=== PATIENT | female | born 1950 | race Caucasian/White ===

== ENCOUNTER 2021-10-23 12:37 | Emergency (ER) | payer MEDICARE, BC, SELFPAY ==
[2021-10-23 12:49] VITALS: BP 135/72; RESP 18; TEMP 36; O2SAT 98; BMI 27.6
--- NOTE | 2021-10-23 13:07 | ED.GENADULT ---
HPI - General Adult General Time Seen by Provider: 13:07 Date Seen: 10/23/21 Chief complaint: Cough Stated complaint: Covid+, struggling to breathe Time Seen by Provider: 10/23/21 12:56 Source: patient and RN notes reviewed Mode of arrival: ambulatory Limitations: no limitations History of Present Illness HPI narrative: Patient is a 71-year-old female coming in to the ER with concern of COVID symptoms. She started having COVID symptoms Tuesday night, her is also home sick with COVID. She has some mild intermittent asthma per her report. This morning she had some phlegm and could not cough it up and had a spell where she had difficulty breathing. She is coughing some with this but not excessively. She has had some low-grade fevers. She had a headache the 1st 2 days but that has gone away. Body aches were more severe at the beginning but less so today. Tuesday morning when she woke up she had an episode of vertigo where she was spinning for a couple of hours. She has had vertigo before. She reports this spell of vertigo the day after she had her COVID vaccine and actually passed out with that. She has had a sore throat. She did use her 's inhaler this morning and it did help. It was albuterol. He has asthma as well. She has been vaccinated for COVID and did get 1 booster. She has not noticed any GI symptomatology as of yet with this current COVID illness. She is interested in treatment for COVID. As for medications, patient is on Arimidex, levothyroxine, uses p.r.n. metoprolol for AFib episodes, tacrolimus topical and betamethasone topical. Onset (ago): day(s) Related Data Home Medications Medication Instructions Recorded Confirmed anastrozole 1 mg tablet mg 10/23/21 clobetasol 0.05 % topical ointment TOPICAL 10/23/21 levothyroxine 112 mcg tablet mcg 10/23/21 metoprolol tartrate 25 mg tablet mg 10/23/21 tacrolimus 0.1 % topical ointment TOPICAL 10/23/21 Previous Rx's Medication Instructions Recorded nirmatrelvir 150 mg-ritonavir 100 See Rx Instructions .ROUTE 10/23/21 mg tablet (EUA) (Paxlovid) .COMPLEX #20 tab Allergies Allergy/AdvReac Type Severity Reaction Status Date / Time Sulfa (Sulfonamide Allergy Verified 10/23/21 12:54 Antibiotics) Sulfa drugs Allergy Uncoded 10/23/21 12:54 Review of Systems Status of ROS: Reports: 6 or more systems reviewed and unremarkable except as noted in History and below [facility] Social History Smoking Status: Never smoker Do you use any of these nicotine containing products: None Second hand tobacco smoke exposure: No How often do you have a drink containing alcohol: 2-3 times a week How many standard drinks containing alcohol do you have on a typical day: 1 or 2 How often do you have six or more drinks on one occasion: Never AUDIT-C Alcohol total score: 3 Non-prescribed substance use: denies use Exam Const: Vital Signs, click to edit/add: Vital Signs - 24 hr 10/23/21 12:49 Temperature 96.8 F L Respiratory Rate 18 Blood Pressure [Le ft Upper Arm] 135/72 Pulse Oximetry 98 Documenting provider has reviewed patient's vital signs: yes Common normals: no apparent distress, average body habitus, oriented x3, no limitations, healthy appearing and alert General appearance: cooperative HENMT: Common normals: normocephalic, head/scalp atraumatic, hearing grossly normal bilaterally and external ears normal Head and scalp: normocephalic and atraumatic External ear: external ears normal Eye: Common normals: PERRL, EOMs intact bilaterally, conjunctivae normal and no scleral icterus Conjunctiva: conjunctiva(e) normal Pupil: PERRL Neck & C-Spine: Common normals: full ROM, no lymphadenopathy, supple, no meningeal signs, no JVD and thyroid normal Thyroid: thyroid normal Resp: Common normals: normal respiratory effort, no retractions, no use of accessory muscles and clear to auscultation bilaterally Auscultation: clear to auscultation bilaterally Cardio: Common normals: no JVD, regular rate, regular rhythm, S1 normal heart sound, S2 normal heart sound, no gallops, no clicks and no murmurs Rate: regular rate Rhythm: regular rhythm Heart sounds: S1 normal and S2 normal GI: Common normals: Normal to inspection, nondistended, normoactive bowel sounds present, soft to palpation, non-tender, no hepatosplenomegaly and no masses Palpation: soft and no hepatosplenomegaly Extremity: Common normals: normal to inspection, full ROM, no clubbing, cyanosis or edema, no calf tenderness and no pedal edema Neuro: Common normals: oriented x3 Sensorium/orientation: alert Meningeal signs: no meningeal signs Course Course Hospital Course: Patient is interested in treatment in having her lungs checked out. We will do a portable chest x-ray, do baseline lab work. She understands we need to check her creatinine if she is interested in Paxlovid. She is within the treatment window and in the age group that certainly would consider recommending this medicine for her. I have reassured her that she is oxygenating excellently right now with us. She is in the upper 90s. Will continue to monitor on pulse oximetry while here. Reevaluation(s) Reevaluation #1: Reviewed with patient no concerning changes on her chest x-ray and labs overall are reassuring. The white count is low in the C-reactive protein mildly elevated due to her COVID. Did go on the [place] COVID drug interaction website. Her metoprolol hand levothyroxine should be fine I did tell her to stop the topical tacrolimus as oral tack really misses contraindicated. I am doubtful that topical tacrolimus should cause her significant interaction but will have her stop. The anastrozole is not coming up on this and will have her talk to the pharmacist. Her creatinine clearance is in the reduced dosing range and I have written for that. Time: 14:37 Vital Signs Vital signs: Initial Vital Signs Temperature 96.8 F L 10/23/21 12:49 Temperature Source Temporal Artery Scan 10/23/21 12:49 Respiratory Rate 18 10/23/21 12:49 Blood Pressure 135/72 10/23/21 12:49 Blood Pressure Mean 93 10/23/21 12:49 Blood Pressure Position Sitting 10/23/21 12:49 Pulse Oximetry 98 10/23/21 12:49 Oxygen Delivery Method 10/23/21 12:49 Vital Signs Temperature 96.8 F L 10/23/21 12:49 Respiratory Rate 18 10/23/21 12:49 Blood Pressure 135/72 10/23/21 12:49 Pulse Oximetry 98 10/23/21 12:49 Temperature 96.8 F L 10/23/21 12:49 Respiratory Rate 18 10/23/21 12:49 Blood Pressure 135/72 07/22/22 12:49 Pulse Oximetry 98 10/23/21 12:49 Medical Decision Making Lab Data Lab results reviewed: Yes I reviewed the patient's lab results Labs: Lab Results 10/23/21 10/23/21 Range/Units 13:39 13:39 WBC 3.93 L (4.50-11.00) K/uL RBC 4.55 (4.00-5.20) m/uL Hgb 12.9 (12.0-16.0) gm/dL Hct 40.1 (33.0-51.0) % MCV 88 (80-100) fL MCH 28 (26-34) pg MCHC 32 (32-36) gm/dL RDW Coeff of Brant 14.2 (11.5-15.5) % Plt Count 179 (140-440) K/uL Neut % (Auto) 51.1 (42.0-72.0) % Lymph % (Auto) 28.2 (20-44) % [place] % (Auto) 18.6 H (0.0-11.0) % Eos % (Auto) 1.0 (0.0-7.0) % Baso % (Auto) 0.8 (0.0-3.0) % Neut # (Auto) 2.00 (1.7-7.0) K/uL Lymph # (Auto) 1.10 (0.90-2.90) K/uL [facility] # (Auto) 0.70 (0.00-0.90) K/UL Eos # (Auto) 0.00 (0.00-0.50) K/uL Baso # (Auto) 0.00 (0.00-0.30) K/uL Abs Immat Gran (auto) 0.01 (0.00-0.30) K/uL Sodium 138 (135-149) mmol/L Potassium 4.9 (3.6-5.1) mmol/L Chloride 108 (96-114) mmol/L Carbon Dioxide 27 (20-32) mmol/L BUN 17 (7-30) mg/dL Creatinine 0.9 (0.5-1.5) mg/dL Estimated Creat Clear 49.70 Estimated GFR 69 ml/min Glucose 91 (60-115) mg/dL Calcium 8.8 (8.4-10.6) mg/dL Total Bilirubin 0.1 (0.1-1.5) mg/dL AST 34 (12-35) U/L ALT 22 (4-35) U/L Alkaline Phosphatase 92 (40-150) U/L C-Reactive Protein 1.8 H (0.5-1.0) mg/dL Total Protein 6.5 (6.0-8.3) g/dL Albumin 3.9 (3.3-5.0) g/dL Imaging Data Chest x-ray: Attestation: I have reviewed the pertinent imaging results. My impression: On my preliminary review of this chest x-ray, I see hyperinflation but do not appreciate any infiltrate or COVID pneumonia. Radiologist's impression: Patient: EUGENIA ELIZONDO Facility:?[facility] Patient ID:?[id number] Site Patient ID:?[id number]. Site :?[id number] Study:?XRay Chest PORTABLE-10/23/2021 1:35:06 PM Ordering Physician:Boubacar Muller Final Report: Indication: Cough, maki virus Comparison: None available. Technique: Single AP view chest Findings: There is hyperinflation and chronic interstitial change. There is mild bronchial thickening and/or interstitial prominence without evidence of dense consolidation, effusion or pneumothorax. The cardiomediastinal silhouette is within normal limits. The bony thorax is grossly intact. Impression: Hyperinflation and chronic interstitial changes with mild superimposed central bronchial thickening. No dense consolidation or ground-glass opacity. Dictated by Earle Magaña MD @ 10/23/2021 1:49:44 PM (Electronic Signature) Critical Care Time Critical Care Time Critical Care Time: No Discharge Plan Discharge Clinical Impression: COVID-19 Patient Disposition: Home, Self-Care Condition: Stable Instructions: COVID-19 (Coronavirus Disease 2019) (ED), COVID-19: Slow the Coronavirus Spread (ED) Additional Instructions: Start Paxlovid and take as prescribed. Do recommend trying to get up and be mobile at least once or twice every hour. Moving helps keep the lungs aerated. If you feel that you are worsening, have increased difficulty breathing, do recommend returning to be re-evaluated. Do need to quarantine per CDC guidelines or longer if you are still ill. Recommend quarantine in tell gio are improved. I would stop the topical tacrolimus while you are on the Paxlovid. The anastrozole is not coming up in the drug interaction radio program checker, please review this with the pharmacist as well. Activity Level: Activity as Tolerated Prescriptions: New Paxlovid (EUA) 150-100 mg tablet See Rx Instructions .ROUTE .COMPLEX Qty: 20 0RF Rx Instructions: orally per package directions No Action anastrozole 1 mg tablet 0RF Label Comments: TAKE 1 TABLET BY MOUTH EVERY DAY tacrolimus 0.1 % ointment TOPICAL 0RF Label Comments: APPLY TO AFFECTED AREA(S) TOPICALLY ONE TO TWO TIMES DAILY . clobetasol 0.05 % ointment TOPICAL 0RF Label Comments: APPLY THIN LAYER TOPICALLY TO THE AFFECTED AREA 2 TIMES A WEEK levothyroxine 112 mcg tablet 0RF Label Comments: TAKE 1 TABLET BY MOUTH DAILY metoprolol tartrate 25 mg tablet 0RF Label Comments: TAKE ONE TABLET DAILY NEEDED FOR ATRIAL FIBRILLATION WITH RAPID HEART RATE Follow Up/Referrals: Bowen Henson MD [Primary Care Provider] - Stand Alone Forms: [facility] Info Instructions
--- NOTE | 2021-10-23 13:19 | CRLHL7_ITS ---
For Patients: As a result of the Cures Act, medical imaging exams and procedure reports are released immediately into your electronic medical record. You may view this report before your referring provider. If you have questions, please contact your health care provider. Indication: Cough, maki virus Comparison: None available. Technique: Single AP view chest Findings: There is hyperinflation and chronic interstitial change. There is mild bronchial thickening and/or interstitial prominence without evidence of dense consolidation, effusion or pneumothorax. The cardiomediastinal silhouette is within normal limits. The bony thorax is grossly intact. Impression: Hyperinflation and chronic interstitial changes with mild superimposed central bronchial thickening. No dense consolidation or ground-glass opacity. Dictated by Earle Magaña MD @ 10/23/2021 1:49:44 PM (Electronically Signed)
[2021-10-23 13:53] LABS: Basophils Percent Auto 0.8 % (0.0-3.0); Hematocrit 40.1 % (33.0-51.0); Hemoglobin* 12.9 gm/dL (12.0-16.0); Immature Granulocytes Abs Auto 0.01 K/uL (0.00-0.30); Lymphocytes Percent Auto 28.2 % (20-44); Mean Corpuscular HGB Conc 32 gm/dL (32-36); Mean Corpuscular Hemoglobin 28 pg (26-34); Mean Corpuscular Volume 88 fL (80-100); Monocytes Percent Auto 18.6 % (0.0-11.0); Neutrophils Percent Auto 51.1 % (42.0-72.0); Platelet Count* 179 K/uL (140-440); RDW Coefficient of Variation % 14.2 % (11.5-15.5); Red Blood Count 4.55 m/uL (4.00-5.20); White Blood Count* 3.93 K/uL (4.50-11.00)
[2021-10-23 13:59] LABS: Slide Review Reflex No
[2021-10-23 14:11] LABS: Albumin* 3.9 g/dL (3.3-5.0); Chloride* 108 mmol/L (96-114); Potassium* 4.9 mmol/L (3.6-5.1); Sodium* 138 mmol/L (135-149)
[2021-10-23 14:13] LABS: Creatinine* 0.9 mg/dL (0.5-1.5); Estimated Glomerular Filt Rate 69 ml/min
[2021-10-23 14:14] LABS: Alanine Aminotransferase* 22 U/L (4-35); Alkaline Phosphatase* 92 U/L (40-150); Aspartate Amino Transferase* 34 U/L (12-35); Bilirubin Total* 0.1 mg/dL (0.1-1.5); Blood Urea Nitrogen* 17 mg/dL (7-30); Carbon Dioxide* 27 mmol/L (20-32); Glucose* 91 mg/dL (60-115); Total Protein* 6.5 g/dL (6.0-8.3)
[2021-10-23 14:15] LABS: Calcium* 8.8 mg/dL (8.4-10.6)
[2021-10-23 14:17] LABS: C Reactive Protein* 1.8 mg/dL (0.5-1.0)
[2021-10-23 14:49] VITALS: BP 113/66; PULSE 76; RESP 20; O2SAT 100
== END 2021-10-23 14:52 | disposition home or self-care (01) ==
PROVIDERS: Emergency Provider Family Medicine; PCP Family Medicine
DX: U07.1 COVID-19 (principal)
CPT/HCPCS: 36415; 71045; 80053; 85025; 86140; 99284

== ENCOUNTER 2021-11-04 14:51 | Outpatient (CLI) | payer MEDICARE, BC, SELFPAY ==
--- OUTSIDE RECORDS SUMMARY | 2021-09-25 09:53 | XMS_ITS | Continuity of Care Document ---
:1950 Author Allergies, Adverse Reactions, Alerts Allergen Type Severity Reaction Last Updated Verified Status Sulfa drugs Allergy Mild rash January Yes Active 2020 Social History Smoking Status Status Start Date End Date Date of Observat ion Never smoked tobacco January 6:49pm (finding) Additional Data Assigned Sex Female Problems Active Problems Medical Problem Onset Date Status Rosacea April 17, 2009 Resolved Hypothyroidism June 20, 2009 Active Lichen sclerosus of vulva June 20, 2009 Active Cervical spine pain Active Upper airway resistance form of Active TOMMY Ocular migraine Active GERD (gastroesophageal reflux Active disease) Atrial fibrillation Active Invasive lobular carcinoma of Active right breast in female Heart palpitations Active Painful urination Active Hysterectomy without oophorectomy Active Hx of tonsillectomy Active Hx of cholecystectomy Active Lysis of periclitoral adhesions Active Inactive/Resolved Problems Medical Problem Onset Date Status Hysterectomy without oophorectomy, April 20, 2011 Resol светлана 2001. History of cholecystectomy Resolved Medications Medication Status Dose Units Route Directions Qty Days Start End Ins tructions Date Date Acetaminophen Active 500-1 MG PO Every 6 100 NO MORE THAN (Tylenol 000 Hours as 4000 MG/ DAY Extra needed Strength) 500 Mg TAB Albuterol Active 2 PUFF INH Every 4 02 June (Ventolin Hours as 8th, Hfa) 90 Mcg needed 2020 DOSE 9:38am Anastrozole Active 1 MG OR Daily July 13, 2021 1:19pm Calcium Active 3 TAB PO Daily 100 Carbonate/Cho lecalciferol (Calcium Carbonate/Vit golden D Chewable) 500 Mg/400 Unit CHEW Clobetasol Active 1 YARIEL TOP Twice A Day 16 June Propionate 8th, (Temovate 2020 Cream) 0.05 % 9:38am CRE Doxylamine Active 25 MG PO Bedtime 30 Succinate (Sleep) (Unisom) 25 Mg TAB Famotidine Active 20 MG PO As Needed 90 (Pepcid) 20 Mg TAB Fluticasone Active 2 SPRAY EACH Daily 03 July Propionate NOSTR 13, (Flonase) 50 2015 Mcg/1 [place] 2:46pm DEJUAN Levothyroxine Active 112 MCG PO Daily July Sodium 2021 2:51pm Magnesium Active 500 PO Daily 100 Oxide Metoprolol Active 25 MG PO As Needed 60 Tartrate Tacrolimus Active 1 EACH TOP Twice A Day 30 AP PLY TO (Topical) AFFECTED A COY (Protopic) 0.03 % OIN Albuterol Disconti 2 PUFF INH Every 4 1 uajune (Ventolin nued Hours as y , , Hfa) 90 Mcg needed 2018 2020 DOSE 9:08am 9:38am Albuterol Disconti 2 PUFF INH Every 4 1 (Ventolin nued Hours as ry Hfa) 90 Mcg needed , DOSE 2018 9:08am Albuterol Disconti 2 PUFF INH Every 4 1 October (Ventolin nued Hours as r , , Hfa) 90 Mcg needed 2015 2017 DOSE 8:50am 3:53pm Anastrozole Disconti 1 MG OR Daily July nued , 2020 12:43pm 1:19pm Anastrozole Disconti 1 MG OR Daily July nued , 2020 2:44pm 12:43p m Anastrozole Disconti 1 MG OR Daily July nued 2020 2:44pm Anastrozole Disconti 1 MG PO Daily as 90 August (Arimidex) 1 nued needed , Mg TAB 2019 2020 10:34am 2:08pm Aspirin Disconti 81 MG PO Daily 100 Octobe nued r 2018 2:49pm Calcium Disconti 500 MG OR as needed July Carbonate nued , (Antacid) 2018 (Tums) 500 Mg 9:43am CHW Calcium/Vitam Disconti 2 PO Twice A Day 100 Nov emb in D (Calcium nued er Carbonate/Vit , golden D) 2019 Unknown 2:06pm Strength TAB Cephalexin Disconti 500 MG PO Four Times 29 November Novemb nued Daily , er 2018 , 1:17pm 2018 3:43pm Clobetasol Disconti 1 YARIEL TOP Twice A Day 16 January Kimo h Propionate nued , , (Temovate 2018 2020 Cream) 0.05 % 3:34pm 9:38am CRE Clobetasol Disconti 1 YARIEL TOP Twice A Day 16 January Octo be Propionate nued 24th, r (Temovate 2017, Cream) 0.05 % 10:12am 2018 CRE 3:34pm Clobetasol Disconti 1 YARIEL TOP Twice A Day 15 Decemb Octo be Propionate nued r 8th, r (Temovate 2016, Cream) 0.05 % 12:57pm 2017 CRE 10:12a m Clobetasol Disconti 1 EACH TOP Twice A Day 15 Decemb APPLY Propionate nued as needed er SPARI NGLY TO (ova, AFFECTED A COY Cream) 0.05 % 2016 CRE 1:01pm Desonide Disconti 0.05 % EX 2-3 Times August nued Daily , , 2008 2009 3:17pm 10:40a m Diphenhydrami Disconti 25 MG PO Novemb ne Hcl nued er (Sleep) 6th, (Diphenhydram 2015 ine Hcl) 50 1:04pm Mg TAB Diphtheria/Te Disconti 0.5 ML IM Once Januaryobe tanus/Acell nued , r Pertussis 2013, (Adacel) 0.5 9:36am 2013 Ml INJ 9:45am Estradiol Disconti 25 MCG VA Twice June Vaginal nued Weekly Qhs , er (Vagifem) 2009, Mcg TAB 9:17am 2009 2:28pm Estriol Disconti 1 GM VAG Twice uaseptember Use vag inally Micronized nued Weekly y , , 2 x pe r week 2018 2019 9:13am 1:02pm Estriol Disconti 1 GM VAG Twice 30 Decemb Februa Use va ginally Micronized nued Weekly r , ry 2 x per week 2016, 12:57pm 2018 9:13am Estriol Disconti 1 GM VAG Twice 31 October Decemb Use vagi dirk Micronized nued Weekly , er 2 x per week 2015 8th, 4:58pm 2016 12:57p m Estriol Disconti 1 GM VAG Twice September Use vagin ally Micronized nued Weekly , , 2 x per week 2014 2015 6:04pm 4:58pm Estriol Disconti 0.3 % VAG Twice September Micronized nued Weekly , , 2014 2014 3:12pm 6:04pm Estrogens Disconti 0.5 GM PV Daily as August Conjugated nued needed , , (Premarin 2014 2015 Cream) 0.625 10:05am 4:58pm Mg/1 Gm CRE Estrogens Disconti 0.5 GM PV Daily as August Conjugated nued needed er , (Premarin 2014 Cream) 0.625 2012 10:05a Mg/1 Gm CRE 11:36am m Estrogens Disconti 0.5 GM PV Daily as January Conjugated nued needed , hever (Premarin 2012 01, Cream) 0.625 2:58pm 2012 Mg/1 Gm CRE 11:36a m Estrogens Disconti 0.5 GM PV Daily as August Conjugated nued needed , r (Premarin 2010, Cream) 0.625 2:26pm 2011 Mg/1 Gm CRE 2:58pm Estrogens Disconti 0.5 GM PV Daily as August Conjugated nued needed r , , (Premarin 2009 2010 Cream) 0.625 3:07pm 2:26pm Mg/1 Gm CRE Estrogens Disconti 0.5 GM AFFEAR Daily as June Conjugated nued needed , er (Premarin 2009, Cream) 0.625 9:17am 2009 Mg/1 Gm CRE 3:07pm Estrogens Disconti 1 GM PV Daily as June Conjugated nued needed , , (Premarin 2008 2008 Cream) 0.625 4:00pm 2:49pm Mg/1 Gm CRE Fluticasone Disconti 2 SPRAY EACH Daily July Propionate nued NOSTR r , , (Flonase) 50 2012 2014 Mcg/1 [place] 1:25pm 2:46pm DEJUAN Fluticasone Disconti 1-2 SPRAY EACH Daily January Propionate nued NOSTR 2nd, ry (Nasal) 2011, (Flonase 1:48pm 2013 Nasal [place]) 3:09pm 50 Mcg/[place] DEJUAN Guaifenesin/C Disconti 1-2 TSP PO Q4h Prn October Novemb odeine nued 2nd, er Phosphate 2012, (Guaifenesin- 4:43pm 2012 Codeine) 100 3:49pm Mg/10 Mg/5 Ml SOLN Hydrocortison Disconti 1 SUPP AR Q12h Prn June e Acetate nued , , (Anucort-Hc) 2009 2009 25 Mg SUPP 1:35pm 9:32am Hydrocortison Disconti 25 MG AR Twice A Day June e Acetate nued , , (Anucort-Hc) 2008 2008 25 Mg SUPP 11:15am 2:49pm Hydrocortison Disconti 25 MG AR Twice A Day 23 April M arch e Acetate nued , , (Anucort-Hc) 2007 2008 25 Mg SUPP 1:03pm 11:15a m Ibuprofen Disconti 400-8 MG PO Q6h Prn 25 November (Advil) 200 nued , Mg TAB 2020 1:53pm Influenza Disconti 0.7 ML IM Once Januaryobe Virus Vac nued , r Split High 2019, (Fluzone 9:30am 2019 High-Dose Pf 9:35am 2019 0.7 Ml) 1 Inj INJ Influenza Disconti 0.5 ML IM Once 1 Novem Novemb Virus Vacc nued r , er Triv Types 2009, A&B (Fluzone 3:16pm 2009 Unit Dose 3:17pm ) 0.5 Ml INJ Influenza Disconti 0.5 ML IM Once 1 Septem Virus Vacc nued er hever Triv Types , , A&B (Fluarix) 2008 2008 0.5 Ml INJ 11:51am 11:53a m Influenza Disconti 0.5 ML IM Once 1 Januar Virus Vacc nued y , y Triv Types 2007, A&B (Fluarix) 3:55pm 2007 0.5 Ml INJ 3:36pm Influenza Disconti 0.5 ML IM Once 1 Novembe Novemb Virus Vaccine nued r , er Split 2018, (Fluzone 8:29am 2019 High-Dose Pf 8:40am 2018 0.5 Ml) 1 Inj INJ Influenza Disconti 0.5 ML IM Once 1 Decee [facility] Virus Vaccine nued r 8th, er Split 2016 8th, (Fluzone 1:01pm 2016 Quadrivalent 1:12pm 2016 0.5 Ml) 1 Inj INJ Influenza Disconti 0.5 ML IM Once 1 [facility] Virus Vaccine nued r 19th, er Split 2015, (Fluzone 8:31am 2015 Quadrivalent 9:36am (3 Yrs And Older)2015- ) 1 Inj INJ Influenza Disconti 0.5 ML IM Once 1 Virus Vaccine nued r 6th, er Split 2014 09, (Fluzone 1:11pm 2014 Quadrivalent 1:13pm (3 Yrs And Older)2014- ) 1 Inj INJ Influenza Disconti 0.5 ML IM Once 1 Januaryobe Virus Vaccine nued th, r Split 2013, (Fluzone 9:36am 2013 Multidose 9:45am Vial [id number]) 1 Inj INJ Influenza Disconti 0.5 ML IM Once 1 [facility] Virus Vaccine nued r 5th, er Split 2011 08, (Fluzone Pf 4:04pm 2011 [id number] 4:06pm (0.5 Ml)) 0.5 Ml INJ Levothyroxine Disconti 112 MCG PO Daily June Sodium nued , 2020 9:38am 2:51pm Levothyroxine Disconti 112 MCG PO Daily 90 June Sodium nued y 2019 4:30pm 9:38am Levothyroxine Disconti 112 MCG PO Daily June Sodium nued 2018, 10:38am 2019 4:30pm Levothyroxine Disconti 112 MCG PO Daily June Sodium nued r , 2017 11:00am 10:38a m Levothyroxine Disconti 112 MCG PO Daily April Sodium nued 15, er 2018 11, 2:30pm 2017 11:00a m Levothyroxine Disconti 112 MCG PO Daily April Sodium nued , y 2016, 2:10pm 2017 2:30pm Levothyroxine Disconti 112 MCG PO Daily 90 Decembe Apruar Sodium nued r 21st, y 2014 12:17pm 2:10pm Levothyroxine Disconti 112 MCG PO Daily 90 October Sodium nued er , 2015 4:13pm 11:31am Levothyroxine Disconti 112 MCG PO Daily 4 Decemb Sodium nued r , er 2014, 12:47pm 2014 12:17p m Levothyroxine Disconti 112 MCG PO Daily 90 Decembdecem Sodium nued r 11th, hever 2013, 1:46pm 2014 11:31a m Levothyroxine Disconti 112 MCG PO Daily 90 Novembermb Sodium nued , er 2014 02, 2:12pm 2013 1:46pm Levothyroxine Disconti 112 MCG PO Daily 90 September Sodium nued , , 2013 2013 1:11pm 2:12pm Levothyroxine Disconti 112 MCG PO Daily 90 September Sodium nued er , 2013 1:11pm 6:31pm Levothyroxine Disconti 100 MCG PO Daily August Sodium nued , er 2012, 9:01am 2012 3:49pm Levothyroxine Disconti 112 MCG PO Daily 90 September Sodium nued 14th, hever 2013 02, 1:18pm 2012 6:31pm Levothyroxine Disconti 100 MCG PO Daily 90 July Sodium nued , , 2011 2012 9:41am 9:01am Levothyroxine Disconti 1 TAB PO Daily July Sodium nued 20th, r 2nd, (Synthroid) 2011 2011 100 Mcg TAB 10:29am 1:11pm Levothyroxine Disconti 1 TAB PO Daily 60 Decembe July Sodium nued r , , (Synthroid) 2010 2011 100 Mcg TAB 5:32pm 10:29a m Levothyroxine Disconti 1 TAB PO Daily 60 Decembe Decemb Sodium nued r , er (Synthroid) 2009, 100 Mcg TAB 9:48am 2010 5:32pm Levothyroxine Disconti 1 TAB PO Daily 60 Januarymb Sodium nued , er (Synthroid) 2010 10th, 100 Mcg TAB 1:17pm 2009 9:48am Levothyroxine Disconti 1 TAB PO Daily June Sodium nued , er (Synthroid) 2009, 75 Mcg TAB 9:17am 2009 2:28pm Levothyroxine Disconti 100 MCG PO Daily July Sodium nued , er (Synthroid) 2009 30, 25 Mcg TAB 9:19am 2009 2:28pm Levothyroxine Disconti 1 TAB PO Daily January Sodium nued , (Synthroid) 2008 2009 75 Mcg TAB 2:57pm 9:17am Levothyroxine Disconti 1 TAB PO Daily September Sodium nued , (Synthroid) 2008 2009 75 Mcg TAB 2:53pm 10:40a m Levothyroxine Disconti 1 TAB PO Daily July Sodium nued , (Synthroid) 2007 2008 75 Mcg TAB 5:17pm 2:53pm Levothyroxine Disconti 1 TAB PO Daily July Sodium nued y , (Synthroid) 2007 2007 75 Mcg TAB 7:46am 5:17pm Levothyroxine Disconti 75 MCG PO Daily July Dece Sodium nued , er (Synthroid) 2006 3rd, 50 Mcg TAB 6:55pm 2006 3:22pm Levothyroxine Disconti 75 MCG PO Daily April Sodium nued , (Synthroid) 2006 2006 50 Mcg TAB 7:44am 2:23pm Levothyroxine Disconti 75 MCG PO Daily 30 Dece Sodium nued er (Synthroid) , 50 Mcg TAB 2005 9:14am Lorazepam Disconti 1 MG PO Once 1 June nued , , 2019 2019 9:55am 11:06a m Pneumococcal Disconti 0.5 ML IM Once 1 Novem Novemb Polyvalent nued r 7th, er Vaccine 2017 10, (Pneumovax 4:14pm 2017 23) 25 4:26pm Mcg/0.5 Ml INJ Pneumococcal Disconti 0.5 ML IM Once 1 Decembe Decemb Polyvalent nued r 21st, er Vaccine 2016, (Prevnar 13) 1:36pm 2017 0.5 Ml INJ 1:45pm Ranitidine Disconti 75 MG PO Twice A Day July Hcl (Zantac) nued as needed 25th, 75 Mg TAB 2018 9:43am Testosterone Disconti 1 YARIEL TOP As Directed August Apply to area Micro2% nued as needed , , daily to 2019 2019 every other 1:24pm 1:02pm day prn. Testosterone Disconti 1 YARIEL TOP As Directed August Apply to area Micro2% nued as needed , daily to 2019 2019 every other 1:22pm 1:24pm day prn. Testosterone Disconti 1 YARIEL TOP As Directed r Ma y Apply to area Micro2% nued as needed y , , daily to 2018 2019 every other 9:13am 1:22pm day prn. Testosterone Disconti 1 YARIEL TOP As Directed October ua Apply to area Micro2% nued as needed , daily to 2017, every other 9:20am 2018 day prn. 9:13am Testosterone Disconti 1 YARIEL TOP As Directed Decembe Ju ly Apply to area Micro2% nued as needed r , , daily t o 2016 2017 every other 12:57pm 9:20am day prn. Testosterone Disconti 1 YARIEL TOP As Directed De cemb Apply to area Micro2% nued as needed er er daily to , , every other 2015 2016 day prn. 4:24pm 12:57p m Testosterone Disconti 1 YARIEL TOP As Directed Se ptem Apply to Micro2% nued as needed r 6th, hever affecte d area 2014, daily to 1:58pm 2015 every other 4:11pm day, as needed. Zolpidem Disconti 5 MG PO Bedtime as November Tartrate nued needed 2017, 4:39pm 2018 9:13am Zolpidem Disconti 5 MG PO Bedtime as October Tartrate nued needed , 2015 4:58pm 4:39pm Zolpidem Disconti 5 MG PO Bedtime as October Tartrate nued needed r , 2014 10:49am 4:58pm Zolpidem Disconti 5 MG PO Bedtime as 21 September Octobe Tartrate nued needed 26, r 2014, 3:29pm 2014 8:26am Zolpidem Disconti 5 MG PO Bedtime as 20 Februar Yaritza Tartrate nued needed y , 2014 2:04pm 3:29pm Zolpidem Disconti 5 MG PO Bedtime as 20 Novembe Februa Tartrate nued needed r 14, ry 2013, 2:10pm 2014 2:04pm Zolpidem Disconti 5 MG PO Bedtime as 21 September Novemb Tartrate nued needed 10th, er 2013 14, 1:11pm 2013 2:10pm Zolpidem Disconti 5 MG PO Bedtime as April Tartrate nued needed , 2013 10:27am 1:11pm Zolpidem Disconti 5 MG PO Bedtime as 5 Novembe Februa Tartrate nued needed r , ry (Ambien) 5 Mg 2012, TAB 1:15pm 2013 3:09pm Zolpidem Disconti 5 MG PO Bedtime as 20 Novembe Januar Tartrate nued needed r 27, y 2012, 4:30pm 2013 10:27a m Zolpidem Disconti 5 MG PO Bedtime as Novemb Tartrate nued needed er 9, er (Ambien) 5 Mg 2012, TAB 4:09pm 2012 1:15pm Zolpidem Disconti 5 MG PO Bedtime Decemb PRN FOR SLEEP Tartrate nued r 5th, ry (Ambien) 5 Mg 2012 03, TAB 7:47pm 2012 1:51pm Zolpidem Disconti 5 MG PO Bedtime 21 November Decemb PRN FOR SLEEP Tartrate nued 6th, er (Ambien) 5 Mg 2011 08, TAB 10:00am 2011 3:25pm Zolpidem Disconti 5 MG PO Bedtime July PRN F OR SLEEP Tartrate nued 18th, 6th, (Ambien) 5 Mg 2011 2011 TAB 10:39pm 10:00a m Zolpidem Disconti 5 MG PO Bedtime April PRN FOR SLEEP Tartrate nued , 18th, (Ambien) 5 Mg 2011 2011 TAB 10:08am 10:39p m Zolpidem Disconti 5 MG PO Bedtime mbapruar PRN FOR SLEEP Tartrate nued r , y (Ambien) 5 Mg 2010, TAB 12:16pm 2011 10:08a m Zolpidem Disconti 5 MG PO Bedtime 21 September Decemb PRN F OR SLEEP Tartrate nued , er (Ambien) 5 Mg 2010 12, TAB 4:52pm 2010 12:16p m Zolpidem Disconti 5 MG PO Bedtime August PRN FO R SLEEP Tartrate nued , , (Ambien) 5 Mg 2010 2010 TAB 2:26pm 4:52pm Immunizations Immunization Event Date Not Given Dose [employer] Lot Vac cine Reason Number Number Informatio n Statement (VIS) Deta il COVID-May 05 MODERNA US [id number] Moderna 2020 COVID-19 June 20 MODERNA US [id number] Moderna 2020 Influenza February [id number] Influenza December 04 GlaxoSmithKline 2008 Influenza February 04 Sanofi Pasteur 2009 Influenza March 07 Sanofi Pasteur 2011 Influenza January 06 NOVARTIS 2013 Influenza February 07 Sanofi 2014 Influenza March 10 Sanofi 2015 Influenza March 11 Sanofi 2016 Influenza February 10 SANOFI 2018 Influenza January 11 SANOFI 2019 Prevnar Adult March 04 MERCK [id number] 2016 Pneumovax Adult February 02 MERCKSHARP [id number] 2017 Tetanus/Dipther January 02 ia 2013 Tdap January 02 SANOFI [id number] (adolescent/[place] 2013 lt) Advance Directives Advance Directive Response Recorded Date/Time Does Pt have Health Care No February 09 015 10:07am Directive? Has patient completed a No November 14 6:50pm Health Care Directive? Insurance Providers Guarantor Charity Elizondo S Address [address] [place] [address] [facility] [id number] Contact Info. Home Phone: Payer Policy Id Coverage Id Subscriber's Subscriber Id Effective E xpiration Name Date Date Bc [place] [id number] Charity Elizondo April [id number] [id number] S 2016 Medicare [id number] Charity Elizondo 63 [address] Plan of Treatment Future Tests Future scheduled test information is unavailable Pending Tests Pending diagnostic test information is unavailable Future Visits Future appointment information is unavailable Referrals to Other Providers Reason for Referral Start Provider Provider Contact Provider Address Referral Date Information Blanca Abdi Work Phone: [facility] [facility] [address] [place] [address] Future Procedures Future procedure information is unavailable Future Medications Future medication information is unavailable Patient Instructions Atrial Flutter (DC)
--- NOTE | 2021-11-04 15:00 | CRLHL7_ITS ---
For Patients: As a result of the Cures Act, medical imaging exams and procedure reports are released immediately into your electronic medical record. You may view this report before your referring provider. If you have questions, please contact your health care provider. DXA BONE MINERAL DENSITY STUDY, 11/04/2021 Current height (inches): 66.0 Weight (lbs.): 173.0 Menopause age: 52 Ethnicity: White 1. Have you had a previous hip or vertebral fracture? No. 2. Have you had any fractures during your adult life which did not result from significant trauma (e.g., auto accident)? No. 3. Did either of your parents have a hip fracture? No. 4. Do you smoke? No. 5. Have you ever taken Glucocorticoids? No. 6. Do you have rheumatoid arthritis? No. 7. Do you have secondary osteoporosis? No. 8. Do you drink 3 or more alcoholic drinks per day? No. 9. Are you being treated for osteoporosis? No. 10. Have you ever taken any of the following medications: Actonel, Evista, Fosamax, Miacalcin, Reclast, Boniva, Forteo, HRT (i.e., estrogen/hormone therapy), Protelos, Prolia, Vitamin D, Calcium, other ??? please specify. ANSWER: Yes; vitamin D. 11. Do you have any of the following medical conditions: Anorexia or bulimia, asthma or emphysema, end stage renal disease, hyperparathyroidism, any seizure disorders, cancer, inflammatory bowel diseases, hysterectomy, other ??? please specify. ANSWER: Yes; hysterectomy. 12. What was your maximum height (inches)? 67. 13. Do you perform weightbearing exercise regularly? No. 14. Do you regularly consume dairy products? No. 15. Do you drink caffeinated beverages? Yes. If female: 16. At what age did your period start? 17. 17. Are you premenopausal? No. 18. How many full-term pregnancies have you had? 2. 19. Have you ever missed your period for more than 6 months in a row (not including or menopause)? No. TECHNIQUE: Bone mineral density study was performed using the [employer]. FINDINGS: The results of the study expressed as bone mineral density (BMD) are as follows: Lumbar Spine L1 to L4: BMD: 1.225 g/cm2. T-score: 1.6. Z-score: 3.7. Neck Left: BMD: 0.690 g/cm2. T-score: -1.4. Z-score: 0.3. Right: BMD: 0.689 g/cm2. T-score: -1.4. Z-score: 0.3. Total Left: BMD: 0.908 g/cm2. T-score: -0.3. Z-score: 1.2. Right: BMD: 0.889 g/cm2. T-score: -0.4. Z-score: 1.0. IMPRESSION: Osteopenia. COMPARISON: Compared with scan of 10/31/2019, the bone mineral density has decreased by 3.8 percent at the spine. Compared with scan of 04/01/2016, the bone mineral density has decreased by 3.8 percent at the hip. *Comparison exams done prior to 09/2019 were performed on different unit, [facility]. FRAX 10-year Fracture Risk Major Osteoporotic Fracture: 9.5 percent Hip Fracture: 1.2 percent Reported Risk Factors: [place] () Neck BMD = 0.689, BMI = 27.9 YOSSI SWENSON M.D. Diagnostic Radiologist [email or web address] Transcribed: 6:[address]/Dictated by: Yossi Swenson MD @ 11/04/2021 3:44:00 PM (Electronically Signed)
== END 2021-11-04 14:52 | disposition home or self-care (01) ==
LOC: RAD 14:53
PROVIDERS: PCP Family Medicine; Visit Provider Internal Medicine Hematology & Oncology
DX: Z78.0 Asymptomatic menopausal state (principal); M85.89 Other specified disorders of bone density and structure, multiple sites
CPT/HCPCS: 77080

== ENCOUNTER 2021-11-11 09:53 | Outpatient (RCR) | payer MEDICARE, BC, SELFPAY | END 2022-05-10 23:59 | disposition home or self-care (01) | LOC: CCIC 09:53 | PROVIDERS: PCP Family Medicine; Visit Provider Internal Medicine Hematology & Oncology | DX: C50.911 Malignant neoplasm of unspecified site of right female breast (principal); Z17.0 Estrogen receptor positive status [ER+]; Z79.811 Long term (current) use of aromatase inhibitors; N95.2 Postmenopausal atrophic vaginitis | CPT/HCPCS: 99212; 99214 ==

== ENCOUNTER 2022-09-24 09:58 | Outpatient (CLI) | payer MEDICARE, BC, SELFPAY ==
--- OUTSIDE RECORDS SUMMARY | 2022-09-24 10:01 | XMS_ITS | Continuity of Care Document ---
Author Name [facility] Team Providers Care Bellows Assembler Name Role Phone [facility] Unavailable Unavailable Problems Problem Status Onset Date Classification Date Reported Comments Source Disease of thyroid gland (disorder) Active 04/16/2018 [facility] Cervicalgia 04/16/2018 [facility] Other chronic pain 04/16/2018 [facility] Personal history of other (healed) physical injury and trauma 04/16/2018 [facility] Medications Medication Details Route Status Patient Instructions Ordering Provider Order Date Source Synthroid 112 mcg, Tab, PO, qDay, 0, Maintenance Active 9 [facility] Allergies, Adverse Reactions, Alerts Substance Category Reaction Severity Reaction type Status Date Reported Comments Source sulfa drugs Assertion Unknown Drug allergy Active [facility] Consultation Notes Results Value Date Source ED Physician Notes Patient: EUGENIA ELIZONDO (EV) Age: 68 years Sex: F : 54 Associated Diagnoses: None Author: Mariella Mckeon MD Basic Information Time seen: Provider Initial Contact Time 04/08/2018 12:21. History source: Patient. Arrival mode: Private vehicle. History limitation: None. Additional information: Chief Complaint (ST) Chief Complaint ED: Neck/No injury 04/08/18 12:18, Subjective Nursing Assessment: PT visiting here for a month . Would like a Rx for massage for her neck. Pt gets this on a regular basis. No new injury. Hx of an injury in the past. In no distress. Traveling, sleeping on new beds. 04/08/18 12:18. History of Present Illness Patient is a 68-year-old female visiting from [place] who comes in today for evaluation of neck pain. Apparently she injured her neck and has a herniated cervical disc, but does not know which one. The injury was about 20 years ago. She manages it with a massage every other week. She only occasionally needs to use ibuprofen and is on no chronic pain meds. Patient states that at home she can just go to a physical therapist for massage treatment. When she tried to schedule one here, she was told that she needed a prescription. Patient denies any new symptoms including pain radiating down her arms, weakness or numbness. She is getting over a mild cold and has a slight cough and stuffy nose.. Review of Systems Constitutional symptoms: No fever, Skin symptoms: No rash, Eye symptoms: No blurred vision, ENMT symptoms: Negative except as documented in HPI. Respiratory symptoms: Negative except as documented in HPI. Cardiovascular symptoms: No chest pain, Gastrointestinal symptoms: No nausea, no vomiting. Musculoskeletal symptoms: Negative except as documented in HPI. Neurologic symptoms: Negative except as documented in HPI. Allergy/immunologic symptoms: No impaired immunity, Health Status Allergies: Allergic Reactions (Selected) Unknown Sulfa drugs- No reactions were documented.. Medications: Include Documented Meds (Selected) Documented Medications Documented Synthroid: 112 mcg, PO, qDay, 0 Refill(s). Past Medical/ Family/ Social History Medical history: All Problems Thyroid disease / [id number] / Confirmed. Surgical history: Cholecystectomy (73073451). Tonsillectomy (158364307). Hysterectomy ([id number]).. Family history: No family history items have been selected or recorded.. Social history: Social and Psychosocial Habits Alcohol 04/08/2018 Use: Denies Home/Environment 04/08/2018 Buddhist restrictions/concerns: None Substance Abuse 04/08/2018 Use: Denies Tobacco 04/08/2018 Tobacco Use: Never (less than 100 in l. Physical Examination Vital Signs Vital-Signs 04/08/18 12:18 MST SPO2 96 % Normal Heart Rate 69 bpm Normal NIBP Systolic 95 mm Hg Normal NIBP Diastolic 67 mm Hg Normal Resp Rate (Monitor) 18 Breaths/Min Normal Temperature PO 36.8 deg C Normal Pain Intensity 2 Pain Scale Used Numeric Rating Scale . Measurements 04/08/18 12:18 MST Drug Calc Weight (kg) 83.091 kg BMI 29.57 Height 167.64 cm Normal . General: Alert, no acute distress. Skin: Warm, dry, no rash. Head: Normocephalic, atraumatic. Neck: Supple, trachea midline, no tenderness. Eye: Normal conjunctiva. Cardiovascular: Regular rate and rhythm, No murmur, Normal peripheral perfusion. Respiratory: Lungs are clear to auscultation, respirations are non-labored, breath sounds are equal. Chest wall: No tenderness. Back: Nontender. Musculoskeletal: No deformity. Neurological: No focal neurological deficit observed. Lymphatics: No lymphadenopathy. Psychiatric: Cooperative, appropriate mood and affect. Medical Decision Making Differential Diagnosis: Lumbar strain, disc herniation, sciatica, thoracic strain, Neck pain, soft tissue pain.. Impression and Plan Chronic neck pain (KMR27-CB M54.2, Discharge, Medical) Plan Condition: Stable. Disposition: Discharged: to home. Prescriptions Patient was given the following educational materials: Musculoskeletal Pain. Follow up with: Follow up with your usual provider Within 1 week, only if needed Continue taking your home medications. Continue massage therapy. Please follow-up with your regular provider with any concerns. . Counseled: Patient, Regarding diagnosis, Regarding treatment plan, Patient indicated understanding of instructions. Orders: Launch Orders Admit/Transfer/Discharge: Discharge (Order Processing): 04/08/18 12:43 MST, Now, Home or self care. Electronically Signed By: Mariella Mckeon MD On 04/08/18 17:30 Co Signature By: Modify Signature By: Mariella Mckeon MD On 04/08/18 17:30 04/08/2018 [facility] Vital Signs Vital Sign Value Date Comments Source BMI 29.57 04/08/2018 [facility] Weight Method Actual (04/08/18 12:18 PM) 04/08/2018 [facility] Drug Calc Weight (kg) 83.091 04/08/2018 [facility] Height (cm) 167.64 04/08/2018 [facility] Sensory Deficits None (04/08/18 12:18 PM) 04/08/2018 [facility] Temperature (c) 36.8 04/08/2018 [facility] Systolic (mm Hg) 95 04/08/2018 [facility] Diastolic (mm Hg) 67 04/08/2018 [facility] Heart Rate (bpm) 69 04/08/2018 [facility] Respiratory Rate 18 Breaths/Min 04/08/2018 [facility] Pain Scale Numeric Rating Scale (04/08/18 12:18 PM) 04/08/2018 [facility] SPO2 96 04/08/2018 [facility] Encounters Location Location Details Encounter Type Encounter Number Reason For Visit Attending Provider ADM Date DC Date Status Source [facility] Emergency [id number] Mariella Mckeon 04/08 [facility] Procedures Procedure Code Date Perfomer Comments Source Cholecystectomy (procedure) [id number] [facility] Hysterectomy (procedure) [id number] [facility] Tonsillectomy (procedure) [id number] [facility] Social History Social History Date Source Social History TypeResponse Smoking Status Never (less than 100 in lifetime) entered on: 04/08/18 04/08/2018 [facility] Assessment and Plan Result Assessment and Plan Date Source Assessment and Plan No data available fo r this section 04/08/2018 [facility]
== END 2022-09-24 09:59 | disposition home or self-care (01) ==
PROVIDERS: PCP Family Medicine; Visit Provider Family Medicine
DX: Z00.00 Encounter for general adult medical examination without abnormal findings (principal); E03.9 Hypothyroidism, unspecified; I48.91 Unspecified atrial fibrillation; Z11.59 Encounter for screening for other viral diseases; Z13.6 Encounter for screening for cardiovascular disorders
CPT/HCPCS: 80053; 80061; 84443; 86803

== ENCOUNTER 2022-10-22 11:13 | Outpatient (CLI) | payer MEDICARE, BC, SELFPAY ==
--- NOTE | 2022-10-22 06:47 | W.ANESCHARGE ---
Anesthesia Charges Start Date/Time Anesthesia Start Date: 10/22/22 Anesthesia Start Time: 12:00 Stop Date/Time Anesthesia Stop Date: 10/22/22 Anesthesia Stop Time: 12:38 Summary Extremes of Age - Over 70 or under 1: MDA
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
--- NOTE | 2022-10-22 12:41 | W.ANESCHARGE ---
Anesthesia Charges Start Date/Time Anesthesia Start Date: 10/22/22 Anesthesia Start Time: 12:00 Stop Date/Time Anesthesia Stop Date: 10/22/22 Anesthesia Stop Time: 12:38
== END 2022-10-22 11:14 | disposition home or self-care (01) ==
LOC: OP CLINIC 11:14
PROVIDERS: PCP Family Medicine; Visit Provider Internal Medicine
DX: Z12.11 Encounter for screening for malignant neoplasm of colon (principal); R13.10 Dysphagia, unspecified
CPT/HCPCS: 43239; 45378; 813; 88305; 99100; J2704

== ENCOUNTER 2022-12-23 10:20 | Outpatient (RCR) | payer MEDICARE, BC, SELFPAY ==
--- NOTE | 2022-09-23 11:36 | ONC.NURNOTE ---
[facility]. message left for Dr. Escobar.
--- NOTE | 2022-09-24 15:56 | ONC.NURNOTE ---
Addendum entered by Wen Jaeger 09/28/22 08:46: Reviewed with Dr. Escobar. Patient had a screening mammogram 08/12/2022 and it was negative. Patient instructed to call us right away if the rash returns and we will proceed with diagnostic imaging. Patient wanted to note that she has seen a accordion tuner recently as well for contact dermatitis in her right axilla and that has also resolved although she has some residual itching. Patient verbalizes understanding of plan. Original Note: Received call from pt reporting she needs her Anastrazole refilled; given to Deborah Jackson APRN, pharmacy confirmed. Pt also reports she had an infection in her right breast that has fully resolved with ABX, despite C-diff infecion which has also resolved. Pt saw PCP Yary Ash today who recommended pt see Oncology to evaluate breast as there is no discernible etiology for breast infection. Nsg to review with Dr. Escobar on 09/27 to discuss how to proceed/possible imaging.
== END 2022-12-25 23:59 | disposition home or self-care (01) ==
LOC: CCIC 10:20
PROVIDERS: PCP Family Medicine; Visit Provider Physician Assistant
DX: C50.911 Malignant neoplasm of unspecified site of right female breast (principal); Z17.0 Estrogen receptor positive status [ER+]; Z79.811 Long term (current) use of aromatase inhibitors; N90.4 Leukoplakia of vulva; I48.91 Unspecified atrial fibrillation; G47.00 Insomnia, unspecified; B02.9 Zoster without complications; L08.9 Local infection of the skin and subcutaneous tissue, unspecified; M85.80 Other specified disorders of bone density and structure, unspecified site
CPT/HCPCS: 99212; 99214; 99215

== ENCOUNTER 2023-05-26 14:32 | Outpatient (CLI) | payer MEDICARE, BC, SELFPAY | END 2023-05-26 14:33 | disposition home or self-care (01) | PROVIDERS: PCP Family Medicine; Visit Provider Physician Assistant Medical | DX: I48.91 Unspecified atrial fibrillation (principal) | CPT/HCPCS: 83735; 84443 ==

== ENCOUNTER 2023-08-15 14:29 | Outpatient (CLI) | payer MEDICARE, BC, SELFPAY ==
--- OUTSIDE RECORDS SUMMARY | 2023-08-15 14:31 | XMS_ITS | Clinical Summary ---
Author Name Unknown Organization [facility] Address [address] [place] [address] Care Team Providers Care Bank Advisor Name Role Phone Estrada CHARLES MD, [facility] Primary Care Provider [phone] Source Comments You are receiving this document as you are listed as the primary care provider,follow-up provider, or the patient has been referred to you for consultation.This is in compliance with the Medicare andTrihealthcaid EHR Incentive Program,which states Providers who transition their patient to another setting of careor provider of care or refers their patient to another provider of care shouldprovide summary care record for each transition of care or referral. [place] Allergies Active Allergy Reactions Criticality Noted Date Comments Sulfa Antibiotics Rash 08/25/2012 PN: unknown reaction Tetracycline Rash Low 11/28/2007 Medications Medication Sig Dispensed Refills Start Date End Date Status CALCIUM OR Take by mouth. 08/25/2012 Active metoprolol tartrate (LOPRESSOR) 25 MG tablet TAKE ONE TABLET DAILY NEEDED FOR ATRIAL FIBRILLATION WITH RAPID HEART RATE 01/01/2021 Active anastrozole (ARIMIDEX) 1 MG tablet 12/10/2020 Active doxylamine succinate (UNISOM) 25 MG tablet Take 1 Tablet (25 mg) by mouth at bedtime as needed. Active levothyroxine (SYNTHROID) 112 MCG tablet Take 1 Tablet (112 mcg) by mouth daily. Active ALBUterol sulfate HFA 108 (90 Base) MCG/ACT inhaler Inhale every 6 hours as needed. Active calcium carbonate-vitamin D (OYSTER SHELL CALCIUM/D) 500-200 MG-UNIT per tablet Take 1 Tablet by mouth daily with breakfast. Active fluticasone propionate (FLONASE) 50 MCG/ACT nasal solution 2 Sprays by Nasal route. Active Magnesium Gluconate (AKA MAGONATE) 500 MG tablet Take 1 Tablet (500 mg) by mouth. Active traZODone (DESYREL) 50 MG tablet Pt reports taking 75 mg daily. 10/19/2022 Active Generic Medication (COMPOUNDED CREAM) DHEA 5 mg/g in versabase. Apply a pea sized amount to vulva and vestibule 3 times weekly. 30 g 5 06/01/2023 Active clobetasol (TEMOVATE) 0.05 % ointment Apply a thin layer 3 times weekly. 60 g 3 06/01/2023 Active tacrolimus (PROTOPIC) 0.1 % ointment Apply 1-2 times a day. 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9 ??C (96.6 ??F) 08/25/2012 10:54 AM C DT Respiratory Rate - - Oxygen Saturation - - Inhaled Oxygen Concentration - - Weight - - Height - - Body Mass Index - - Plan of Treatment Health Maintenance Due Date Last Done Comments Colon Cancer Screening Plan Due 1950 Hep C Screening (Preventive Services) 1950 Medicare Annual Wellness Visit 1950 Mammogram 1950 Cholesterol 1997 Zoster/Shingles (1 of 2) 2002 Dexa 2017 COVID-19 Vaccine ( season) 2022 01/30/2021, 06/20/2020, 05/23/2020 DTaP/Tdap/Td (2 - Tdap) 01/26/2024 01/25/2014 Pneumococcal 65+ Yrs Completed 02/08/2018, 03/24/20 17 Influenza Completed 02/09/2023, 12/04/2021, 01/30/2021, Additional history exists HepA Aged Out No longer eligi ble based on patient's age to complete this topic HepB Aged Out No longer eligi ble based on patient's age to complete this topic Hib Aged Out No longer eligi ble based on patient's age to complete this topic IPV (Polio) Aged Out No longer eligi ble based on patient's age to complete this topic MCV4 Aged Out No longer eligi ble based on patient's age to complete this topic Care Teams Bank Advisor Relationship Specialty Start Date End Date Akbar Dorado III, MD [address] [id number] [facility] - General 07/06/10
--- OUTSIDE RECORDS SUMMARY | 2023-08-15 14:31 | XMS_ITS | Clinical Summary ---
Author Name Unknown Organization [facility] Address [place], [place] [address] Care Team Providers Care Rrt Name Role Phone Yary Ash MD Primary Care Provider [phone] [phone] Allergies Active Allergy Reactions Criticality Noted Date Comments Sulfa (Sulfonamide Antibiotics) Rash 09/02 Tetracycline Rash 11/28/2007 Medications Medication Sig Dispensed Refills Start Date End Date Status anastrozole (ARIMIDEX) 1 mg tablet Take 1 tablet by mouth once daily. 0 09/20/2019 Active levothyroxine (SYNTHROID) 112 mcg tablet Take 1 tablet by mouth before breakfast. 0 09/20/2019 Active albuterol HFA 90 mcg/actuation inhaler Inhale 2 Puffs by mouth 4 times daily if needed. 0 09/20/2019 Active fluticasone (50 mcg per actuation) nasal solution (FLONASE) Inhale 1 [place] in the nostril(s) once daily. 1 Bottle 09/20/2019 Active acetaminophen (Tylenol Extra Strength) 500 mg tablet Take 1 Tablet (500 mg) by mouth every 6 hours if needed. Max acetaminophen dose: 4000mg in 24 hrs. 0 03/17/2021 Active clobetasol cream 0.05% (TEMOVATE) 0.05 % cream Apply topically to affected area(s). per pt three times a week 0 03/24/2022 Active Magnesium Oxide 500 mg cap Take by mouth. Per Pt. 3 capsules daily 0 03/24/2022 Active medication order composer Per pt Calcium Carbonate + Vit D once daily 0 03/24/2022 Active metoprolol tartrate (LOPRESSOR) 25 mg tabletIndications:P aroxysmal atrial fibrillation (HC) TAKE 1 TABLET BY MOUTH DAILY NEEDED FOR ATRIAL FIBRILLATION WITH RAPID HEART RATE 90 Tablet 04/07/2023 Active levothyroxine (SYNTHROID) 112 mcg tablet Take 112 mcg by mouth. 06/16/2019 Active traZODone (DESYREL) 50 mg tablet TAKE ONE-HALF TO 2 TABLETS BY MOUTH EVERY DAY Active Active Problems Problem Noted Date Diagnosed Date Adhesive capsulitis of shoulder 10/27/2006 Pain in joint, shoulder region 09/19/2006 Overview: L. shoulder adhesive capsulitis Cervicalgia 09/19/2006 Overview: cervical herniation Encounters Date Type Department Care Team Description 08/10/2023 Nurse/Clinic Staff Only [address] [address] Linden San MD 08/10/2023 Travel 08/09/[address] [place] [address] Linden San MD Medication Management; Atrial Fibrillation 08/01/[address] [place] [address] Linden San MD 07/25/2023 9:00 AM CDT Office Visit [facility] [address] [place] [address] Cardiovascular Diagnostic Testing (Stress echo) 07/25/2023 Travel 07/01/2023 11:00 AM CDT Office Visit [address] [place] [address] Linden San MD Follow Up; CV General Cardiology Est (Annual ) 07/01/2023 Orders Only [address] [place] [address] [facility]ares scan: (1-Ord) EKG signed 07/01/2023 05/31/2023 Telephone [facility] at [address] [address] Linden San MD Questions from Last 3 Months Immunizations Name Administration Dates Next Due Influenza, IIV3 (Age >=3 years) 04/02/2008 Social History Tobacco Use Types Packs/Day Years Used Date Smoking Tobacco: Never Smokeless Tobacco: Never Alcohol Use Standard Drinks/Week Comments Yes 0 (1 standard drink = 0.6 oz pur e alcohol) occasional Social Connections Answer Date Recorded Frequency of Communication with Friends and Fami ly Not on file 04/04/2021 Financial Resource Strain Answer Date R ecorded Difficulty of Paying Living Expenses Not on file 04/04/2021 Difficulty of Paying Living Expenses Not on file 04/04/2021 Sex and Gender Information Value Date Recorded Sex Assigned at Not on file Gender Identity Not on file Sexual Orientation Not on file Obstetrics History Last Filed Vital Signs Vital Sign Reading Time Taken Comments Blood Pressure 126/61 07/25/2023 9:30 AM CDT Pulse 78 07/25/2023 9:30 AM CDT Temperature 37 ??C (98.6 ??F) 02/08/2008 1:00 PM IC DESIGN MANAGER Respiratory Rate - - Oxygen Saturation 99% 07/25/2023 9:30 AM CDT Inhaled Oxygen Concentration - - Weight 80.3 kg (177 lb) 07/01/2023 10:50 AM CDT Height 167.6 cm (5' 6) 07/01/2023 10:50 AM CDT Body Mass Index 28.57 07/01/2023 10:50 AM CDT Plan of Treatment Health Maintenance Due Date Last Done Comments Tdap 1963 Depression screening for age 12+ 1964 Hepatitis C screening for age 18-79 1970 Zoster (shingles) series for age 50+ (1 of 2) 1971 Tetanus booster 1972 Colonoscopy through age 75 1997 Lipids for age 45-75 1997 Mammogram for age 45-75 07/01/2009 07/02/19 09, 05/02/2007, 04/20/2007 DEXA/DXA scan for age 65+ 2017 Medicare Wellness for age 65+ 2017 Pneumococcal series for age 65+ (1 of 1 - PCV) 2017 COVID-19 vaccine series (4 - 2022-24 season) 2022 01/30/2021, 06/20/2020, 05/23/2020 Influenza for age 65+ 12/04/2023 04/02/2008 BMI (ht and wt on same day) for age 18+ 06/30/2024 07/01/2023 Procedures Procedure Name Priority Date/Time Associated Diagnosis Comments EKG 12 LEAD Routine 08/10/2023 1:29 PM CDT Paroxysmal atrial fibrillation (HC) ECHO STRESS EXERCISE WO CONTRAST W COLOR W LTD DOPPLER Routine 07/25/2023 10:08 AM CDT Paroxysmal atrial fibrillation (HC) SD CV STRS TST XERS&/OR RX CONT ECG W/SI&R Routine 07/25/2023 12:00 AM CDT Paroxysmal atrial fibrillation (HC) EKG 12 LEAD Routine 07/01/2023 Paroxysmal atrial fibrillation (HC) SCAN-MAMMOGRAPHY REPORT 07/01/2008 12:00 AM CDT from Last 3 Months or Most Recently Relevant to Health Maintenance Results * EKG 12 LEAD (08/10/2023 1:29 PM CDT) Only the most recent of2 resultswithin the time period is included. Interpretation Normal sinus rhythm Rightward axis Borderline ECG No previous ECGs available Ventricular Rate 79 BPM Atrial Rate 79 BPM P-R Interval 152 ms QRS Duration 98 ms QT 364 ms QTc 417 ms P [place] 75 degrees R [place] 94 degrees T [place] 76 degrees 08/10/2023 1:29 PM CDT 08/11/2023 3:29 PM CDT Linden San MD EKG ORD * ECHO STRESS EXERCISE WO CONTRAST W COLOR W LTD DOPPLER (07/25/2023 10:08 AM CDT) AORTIC VALVE MEAN PG 4 mmHg LVEDD 4.4 cm EJECTION FRACTION 55 - 60% Anatomical Region Laterality Modality Ultrasound 07/25/2023 9:18 AM CDT Narrative 07/25/2023 12:15 PM CDT STRESS ECHOCARDIOGRAM EUGENIA ELIZONDO ?Accession#: ?? [id number] : ?1950 73 years Study Date: ?? 07/25/2023 9:18:18 AM Gender: F ? BP: ? 126/61 mmHg Height: 168.00 cm ? BSA: ?1.90 m? ? ? Weight: 80.00 kg ?Tech: ? MBF ?Referring MD: LINDEN SAN Site: ? [facility] Reading Location: Mobile OP Patient Location: Outpatient. Procedure: Stress Echo, Color Doppler and Limited Spectral Doppler. Carlos stress echo. Indication for study: Paroxysmal atrial fibrillation Cardiac Rhythm: Regular.Study quality: Final Impressions: 1. Normal stress echocardiogram without evidence of inducible ischemia by imaging. 2. See separate report for stress EKG interpretation. 3. With exercise, the LV end-systolic dimension decreased and LVEF increased appropriately. 4. Normal blood pressure and heart rate response to exercise. Target heart rate was achieved. 5. Normal functional status for age. 6. Resting LVEF 55-60%. 7. Mild mitral regurgitation. 8. During stress exam the patient developed no significant symptoms. 9. No pericardial effusion. Stress Data: ? HR ?Systolic Diastolic Time Duration Minutes Seconds Baseline 74 bpm ?126 ?61 mmHg ?6 :41 ? Peak ? 160 bpm ?? 150 ?70 mmHg Max Pred HR ?149 % of Max ? 108% Double Product [id number] Echo Findings:This is a negative stress echo test for ischemia. Post stress, decreased left ventricular size, increased global systolic function with an estimated EF of 70 to 75%. LV regional wall motion abnormalities are not present post exercise. EKG:See separate report for EKG interpretation. Exam Protocol:The patient presents with no significant symptoms at baseline. The patient exercised 6 min 41 sec to stage III according to the Carlos stress echo protocol. Test terminated due to shortness of breath. 10.2 METS were achieved. The patient achieved a heart rate of 160 bpm which is 107.6% of maximum predicted heart rate. Maximum systolic blood pressure was 150 [place] [id number]. Maximum stress test with 107.6% of age predicted maximum heart rate achieved. The blood pressure response was normal. Exercise duration and workload were good. The patient developed no significant symptoms during the stress exam. Low (less than 1% annual mortality rate) non invasive risk stratification. LV Wall Scoring: Stage: All segments are normal. REST Stage: All segments are normal. IMPOST Chamber Sizes and Function Normal left ventricular size, normal global systolic function with an estimated EF of 55 - 60%. LV regional wall motion abnormalities are not present. Left atrial size is normal. Right ventricular cavity size is normal, global systolic RV function is normal. The right atrium is normal. The pulmonary artery is not well visualized. The sinus of Valsalva is normal sized. The ascending aorta is normal sized. Valves, RV Pressures and Diastolic Function The aortic valve is normal in structure and trileaflet, no stenosis and no regurgitation. The mitral valve is normal in structure, mild mitral regurgitation. The tricuspid valve is normal in structure. Tricuspid regurgitation is not evident. Masses, Effusion, Shunts There is no pericardial effusion. The inferior vena cava is not well visualized. Interatrial septum is not well visualized. MEASUREMENTS AND CALCULATIONS 2-D Measurements and LV Function: LVID (d) 4.4 cm LV FS% (2D) ?? 45 % LVID (s) 2.4 cm LVOT diameter 2.0 cm IVS (d) ??0.8 cm HR ?74 bpm LVPW (d) 0.8 cm Ao Sinus 2.9 cm Asc Ao ?? 2.7 cm Aortic Valve: Vmax ? 1.3 m/s ??JOSHUA (V) ?? 2.40 cm? ? ? VTI ?0.31 m ?? JOSHUA (I) ?? 2.24 cm? ? ? LVOT V max 1.0 m/s ??Max PG ?7 mmHg LVOT VTI ?? 0.22 m ?? Mean PG ?? 4 mmHg SV ? 69 ml ?Dim Index 0.70 SV index ?? 36 ml/m? ? ? . This study was interpreted by an [facility] accredited facility. ??Final ?? Procedure Note Kush Torres MD - 07/25/2023 STRESS ECHOCARDIOGRAM EUGENIA ELIZONDO : 1950 73 years Study Date: 07/25/2023 9:18:18 AM Gender: F BP: 126/61 mmHg Height: 168.00 cm BSA: 1.90 m? ? ? Weight: 80.00 kg Tech: [facility] Referring MD: LINDEN SAN Site: [facility] Reading Location: Mobile OP Patient Location: Outpatient. Procedure: Stress Echo, Color Doppler and Limited Spectral Doppler. Brucestress echo. Indication for study: Paroxysmal atrial fibrillation Cardiac Rhythm: Regular.Study quality: Final Impressions: 1. Normal stress echocardiogram without evidence of inducible ischemia byimaging. 2. See separate report for stress EKG interpretation. 3. With exercise, the LV end-systolic dimension decreased and LVEFincreased appropriately. 4. Normal blood pressure and heart rate response to exercise. Targetheart rate was achieved. 5. Normal functional status for age. 6. Resting LVEF 55-60%. 7. Mild mitral regurgitation. 8. During stress exam the patient developed no significant symptoms. 9. No pericardial effusion. Stress Data: HR Systolic Diastolic Time Duration Minutes Seconds Baseline 74 bpm 126 61 mmHg 6 :41 Peak 160 bpm 150 70 mmHg Max Pred HR 149 % of Max 108% Double Product [id number] Echo Findings:This is a negative stress echo test for ischemia. Poststress, decreased left ventricular size, increased global systolicfunction with an estimated EF of 70 to 75%. LV regional wall motionabnormalities are not present post exercise. EKG:See separate report for EKG interpretation. Exam Protocol:The patient presents with no significant symptoms atbaseline. The patient exercised 6 min 41 sec to stage III according to the[place] protocol. Test terminated due to shortness of breath.10.2 METS were achieved. The patient achieved a heart rate of 160 bpmwhich is 107.6% of maximum predicted heart rate. Maximum systolic bloodpressure was 150 [place] [id number]. Maximumstress test with 107.6% of age predicted maximum heart rate achieved. Theblood pressure response was normal. Exercise duration and workload weregood. The patient developed no significant symptoms during the stressexam. Low (less than 1% annual mortality rate) non invasive riskstratification. LV Wall Scoring: Stage: All segments are normal. REST Stage: All segments are normal. IMPOST Chamber Sizes and Function Normal left ventricular size, normal global systolic function with anestimated EF of 55 - 60%. LV regional wall motion abnormalities are notpresent. Left atrial size is normal. Right ventricular cavity size isnormal, global systolic RV function is normal. The right atrium is normal.The pulmonary artery is not well visualized. The sinus of Valsalva isnormal sized. The ascending aorta is normal sized. Valves, RV Pressures and Diastolic Function The aortic valve is normal in structure and trileaflet, no stenosis and noregurgitation. The mitral valve is normal in structure, mild mitralregurgitation. The tricuspid valve is normal in structure. Tricuspidregurgitation is not evident. Masses, Effusion, Shunts There is no pericardial effusion. The inferior vena cava is not wellvisualized. Interatrial septum is not well visualized. MEASUREMENTS AND CALCULATIONS 2-D Measurements and LV Function: LVID (d) 4.4 cm LV FS% (2D) 45 % LVID (s) 2.4 cm LVOT diameter 2.0 cm IVS (d) 0.8 cm HR 74 bpm LVPW (d) 0.8 cm Ao Sinus 2.9 cm Asc Ao 2.7 cm Aortic Valve: Vmax 1.3 m/s JOSHUA (V) 2.40 cm? ? ? VTI 0.31 m JOSHUA (I) 2.24 cm? ? ? LVOT V max 1.0 m/s Max PG 7 mmHg LVOT VTI 0.22 m Mean PG 4 mmHg SV 69 ml Dim Index 0.70 SV index 36 ml/m? ? ? . This study was interpreted by an [facility] accredited facility. Final Linden San MD ECHO ORD * SD CV STRS TST XERS&/OR RX CONT ECG W/SI&R (07/25/2023 12:00 AM CDT) Starla Ann MD PB - CARDIOVASC [employer] * SCAN-MAMMOGRAPHY REPORT (07/01/2008 12:00 AM CDT) Anatomical Region Laterality Modality Other Narrative Procedure Note Scanner - 07/01/2008 12:00 AM CDT Scanner OTHER from Last 3 Months or Most Recently Relevant to Health Maintenance Care Teams Rrt Relationship Specialty Start Date End Date Yary Ash MD [address] [place] [place] [id number] PCP - General 07/25/23
--- NOTE | 2023-08-15 14:40 | MM_ITS ---
Patient: EUGENIA ELIZONDO Facility:?[facility] Patient ID:?[id number] Site Patient ID:?[id number] Site :?1950 Study:?XRay-Breast Bilateral 3D W/CAD-08/15/2023 3:22:55 PM Ordering Physician:Yary Khan Final Report: BILATERAL SCREENING MAMMOGRAM WITH COMPUTER-AIDED DETECTION AND TOMOSYNTHESIS TECHNIQUE: CC and MLO views were obtained. These mammographic images have been obtained using full-field digital technique. These mammographic images were interpreted with the benefit of computer-aided detection. Breast tomosynthesis was used in this interpretation. COMPARISON FILM: 08/12/22, 07/07/21, 06/16/20. FINDINGS: The breasts are heterogeneously dense, which may obscure small masses. IMPRESSION: There is no radiographic evidence for malignancy. ASSESSMENT: BI-RADS Category 2: Benign RECOMMENDATION: Routine screening mammogram in 1 year. A lay language report of this examination will be provided to the patient. AKANKSHA SWENSON M.D. Diagnostic Radiologist [email or web address] SOCRATES/josé D& Transcribed: 1:[address]/Dictated by: Akanksha Swenson MD @ 08/16/2023 9:07:00 AM Signed by:?Akanksha Swenson MD @08/16/2023 2:04:55 PM (Electronic Signature)
== END 2023-08-15 14:30 | disposition home or self-care (01) ==
LOC: MAMMO 14:29
PROVIDERS: PCP Family Medicine; Visit Provider Family Medicine
DX: Z12.31 Encounter for screening mammogram for malignant neoplasm of breast (principal); R92.2 Inconclusive mammogram
CPT/HCPCS: 77063; 77067

== ENCOUNTER 2023-09-11 02:57 | Emergency (ER) | payer MEDICARE, BC, SELFPAY ==
[2023-09-11] VITALS (8 sets, daily range): BP systolic 103–113; BP diastolic 56–82; PULSE 68–94; RESP 16; TEMP 36.6; O2SAT 95–97; BMI 27.4
--- OUTSIDE RECORDS SUMMARY | 2023-09-11 03:45 | XMS_ITS | Clinical Summary ---
Author Organization [facility] Address [address] [place] [address] Care Team Providers Care Fiction And Nonfiction Writer Prose Name Role Phone Estrada CHARLES MD, [facility] Primary Care Provider [phone] Source Comments You are receiving this document as you are listed as the primary care provider,follow-up provider, or the patient has been referred to you for consultation.This is in compliance with the Medicare and[facility] EHR Incentive Program,which states Providers who transition their patient to another setting of careor provider of care or refers their patient to another provider of care shouldprovide summary care record for each transition of care or referral. Slice Allergies Active Allergy Reactions Criticality Noted Date [...] of 2) 2002 Dexa 2017 COVID-19 Vaccine () 12/03/2022 01/30/2021, 06/20/2020, 05/23/2020 DTaP/Tdap/Td (2 - Tdap) 01/26/2024 01/25/2014 Pneumococcal 65+ Yrs Completed 02/08/2018, 03/24/20 17 Influenza Completed 02/09/2023, 1204/2021, 01/30/2021, Additional history exists HepA Aged Out [...] age to complete this topic Care Teams Fiction And Nonfiction Writer Prose Relationship Specialty Start Date End Date Akbar Dorado III, MD [address] [id number] PCP - General 4/4/11
--- OUTSIDE RECORDS SUMMARY | 2023-09-11 03:45 | XMS_ITS | Clinical Summary ---
Author Organization [facility] Address [place], [place] [address] Care Team Providers Care Yard Inspector Name Role Phone Yary Ash MD Primary Care Provider [phone] Allergies Active Allergy Reactions Criticality Noted Date [...] per actuation) nasal solution (FLONASE) Inhale 1 [place] in the nostril(s) once daily. 1 Bottle [...] Care Team Description 08/10/2023 Nurse/Clinic Staff Only [address] [address] Linden San MD 08/10/2023 Travel 08/09/[address] [place] [address] Linden San MD Medication Management; Atrial Fibrillation 08/01/[address] [place] [address] Linden San MD 07/25/2023 9:00 AM CDT Office Visit [facility] [address] [place] [address] Cardiovascular Diagnostic Testing (Stress echo) 07/25/2023 Travel 07/01/2023 11:00 AM CDT Office Visit [address] [place] [address] Linden San MD Follow Up; CV General Cardiology Est (Annual ) 07/01/2023 Orders Only [address] [place] [address] Suma Cazares scan: (1-Ord) EKG signed 07/01/2023 from Last 3 Months Immunizations Name Administration [...] 37 ??C (98.6 ??F) 02/08/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 Respiratory Rate - - Oxygen Saturation [...] 1 - PCV) 2017 COVID-19 vaccine series ( season) 2022 01/30/2021, 06/20/2020, 05/23/2020 Influenza for age 65+ 12/04/2023 04/02/2008 BMI (ht and wt on same day) for age 18+ 06/30/2024 07/01/2023 Procedures Procedure Name Priority Date/Time Associated Diagnosis Comments EKG 12 LEAD Routine 08/10/2023 1:29 PM CDT Paroxysmal atrial fibrillation (HC) ECHO STRESS EXERCISE WO CONTRAST W COLOR W LTD DOPPLER Routine 07/25/2023 10:08 AM CDT Paroxysmal atrial fibrillation (HC) AZ CV STRS TST XERS&/OR RX CONT ECG [...] QT 364 ms QTc 417 ms P Emma 75 degrees R Emma 94 degrees T Emma 76 degrees 08/10/2023 1:29 PM CDT 08/11/2023 3:29 PM CDT Linden San MD EKG ORD * ECHO STRESS EXERCISE WO CONTRAST W COLOR W LTD DOPPLER (07/25/2023 10:08 AM CDT) AORTIC VALVE MEAN PG 4 mmHg LVEDD 4.4 cm EJECTION FRACTION 55 - 60% Anatomical Region Laterality Modality Ultrasound 07/25/2023 9:18 AM CDT Narrative 07/25/2023 12:15 PM CDT STRESS ECHOCARDIOGRAM CHARIYT ELIZONDO ?Accession#: ?? [id number] : ?1950 73 years Study Date: ?? 07/25/2023 9:18:18 AM Gender: F ? BP: ? 126/61 mmHg Height: 168.00 cm ? BSA: ?1.90 m? ? ? Weight: 80.00 kg ?Tech: ? MBF ?Referring MD: LINDEN SAN Site: ? [facility] Reading Location: Mobile OP Patient [...] % of Max ? 108% Double Product [id number] Echo Findings:This is a negative stress echo [...] [place] [address] Maximum stress test with 107.6% of age [...] . This study was interpreted by an [facility] accredited facility. ??Final ?? Procedure Note Kush Torres MD - 07/25/2023 STRESS ECHOCARDIOGRAM CHARITY ELIZONDO : 1950 73 years Study Date: 07/25/2023 9:18:18 AM Gender: F BP: 126/61 mmHg Height: 168.00 cm BSA: 1.90 m? ? ? Weight: 80.00 kg Tech: [facility] Referring MD: LINDEN BRAR PULASKIMian Site: [facility] Reading Location: Mobile OP Patient [...] 149 % of Max 108% Double Product [id number] Echo Findings:This is a negative stress echo test for ischemia. Poststress, decreased left ventricular size, increased global systolicfunction with an estimated EF of 70 to 75%. LV regional wall motionabnormalities are not present post exercise. EKG:See separate report for EKG interpretation. Exam Protocol:The patient presents with no significant symptoms atbaseline. The patient exercised 6 min 41 sec to stage III according to [facility] stress echo protocol. Test terminated due to shortness of breath.10.2 METS were achieved. The patient achieved a heart rate of 160 bpmwhich is 107.6% of maximum predicted heart rate. Maximum systolic bloodpressure was 150 [place] [address]. Maximumstress test with 107.6% of age predicted [...] . This study was interpreted by an [facility] accredited facility. Final Linden San MD ECHO ORD * AZ CV STRS TST XERS&/OR RX CONT ECG W/SI&R (07/25/2023 12:00 AM CDT) Starla Ann MD PB - CARDIOVASC [employer] * SCAN-MAMMOGRAPHY REPORT (07/01/2008 12:00 AM CDT) Anatomical Region Laterality Modality Other Narrative Procedure Note Scanner - 07/01/2008 12:00 AM CDT Scanner OTHER from Last 3 Months or Most Recently Relevant to Health Maintenance Care Teams Yard Inspector Relationship Specialty Start Date End Date Yary Ash MD [id number] [place] [id number] PCP - General 07/25/23
--- NOTE | 2023-09-11 03:46 | ED.GENADULT ---
HPI - General Adult General Chief complaint: Arrhythmia/Palpitations Stated complaint: Afib Source: patient Mode of arrival: ambulatory Limitations: no limitations History of Present Illness HPI narrative: 73-year-old female with a history of intermittent AFib presents to the emergency department after having slipped back into AFib at home. She reports that she was rigidly diagnosed about 5 or 6 years ago. She was given metoprolol as a ?pill in the pocket? method and was only having a couple of breakthrough spells per year up until the start of this year. She has had 7 episodes in the past 6 months. She has been in contact with her roof bolting coal miner, Dr. Lind regarding this. She had a stress test 1 month ago which was normal. Had an EKG performed she believes about 2 weeks ago which was also thankfully normal and she knew herself to be in sinus rhythm at that time. She got a new Apple watch at his recommendation and has been using this to track her heart rate and also has a home to lead traffic monitor specialist that she can use. She is confident that she has been in sinus rhythm up until she started feeling funny at about 12 30 this blueprinting machine operator. She reports that she got up to go to the bathroom and started to feel just a little bit unwell, she had a tightness in her throat that is typically her indication that she is going to go into AFib. She got up to go to the bathroom when she came back, she felt like her heart rate had increased. It was around 115-120. Her Apple watch indicated that she was in AFib and V2 lead EKG did as well. She has been taking it nightly preventative metoprolol for about the past month which she did take tonight of course. After the AFib episode, she tried taking her p.r.n. dose of metoprolol which has lowered her heart rate to 70-90 beats per minute but she still remains in AFib. She is not having chest pain, shortness of breath, dizziness or lightheadedness. She has not had any recent fevers, injury or trauma. She has no neurological changes. She is not anticoagulated. No fevers or recent illness, no recent changes in her medications other than the more consistent use of the metoprolol. Past medical history notable for prior breast cancer, maintained on anastrozole. She also has hypothyroidism, therapeutic on her Synthroid. She also is taking the metoprolol as described above. No other long-term medical problems, no recent surgical procedures. Allergies are to sulfas, nonsmoker. ROS notable for the cardiac symptoms as above only, otherwise denies times 12 systems. Related Data Home Medications ?Medication ?Instructions ?Recorded ?Confirmed calcium carbonate 600 mg-vitamin 2 tab PO BID 06/28/22 08/10/23 D3 10 mcg (400 unit) chewable tablet (Calcium 600 with Vitamin D3) metoprolol tartrate 25 mg tablet mg PO PRN 06/28/22 08/10/23 clobetasol 0.05 % topical ointment topical .3 x week 09/24/22 08/10/23 magnesium 100 mg tablet mg PO 09/24/22 08/10/23 tacrolimus 0.1 % topical ointment topical DAILY 09/24/22 08/10/23 Fluticasone nasal spray inhalation 05/26/23 08/10/23 Previous Rx's ?Medication ?Instructions ?Recorded albuterol sulfate 90 mcg/actuation 2 puff inhalation Q4-6H PRN 09/24/22 aerosol inhaler shortness of breath or wheezing #8.5 grams trazodone 50 mg tablet 25 - 100 mg (0.5 - 2 x 50 mg) PO 06/03/23 QDAY #30 tabs anastrozole 1 mg tablet 1 mg PO DAILY #90 tabs 06/06/23 levothyroxine 112 mcg tablet 112 mcg PO DAILY #90 tabs 09/01/23 apixaban 5 mg tablet (Eliquis) 5 mg PO BID #60 tabs 09/11/23 metoprolol tartrate 25 mg tablet 25 mg PO BID #60 tabs 09/11/23 Allergies Allergy/AdvReac Type Severity Reaction Status Date / Time Sulfa (Sulfonamide Allergy Verified 08/10/23 14:23 Antibiotics) [facility] Medical History Hx of herpes zoster ?Z86.19 - Personal history of other infectious and parasitic diseases (ICD-10) Hx of breast cancer (~2019) ?Z85.3 - Personal history of malignant neoplasm of breast (ICD-10) Ocular migraine ?G43.109 - Migraine with aura, not intractable, without status migrainosus (ICD-10) Adhesion of vulva ?N90.89 - Other specified noninflammatory disorders of vulva and perineum (ICD-10) Hx of radiation therapy ?Z92.3 - Personal history of irradiation (ICD-10) Pain of cervical spine ?M54.2 - Cervicalgia (ICD-10) Surgical History History of lumpectomy of right breast (~2019) ?Z98.890 - Other specified postprocedural states (ICD-10) H/O: hysterectomy (~04/2011) ?Z90.710 - Acquired absence of both cervix and uterus (ICD-10) History of tonsillectomy ?Z90.89 - Acquired absence of other organs (ICD-10) History of cholecystectomy ?Z90.49 - Acquired absence of other specified parts of digestive tract (ICD-10) Social History Smoking Status: Never smoker Do you use any of these nicotine containing products: None Second hand tobacco smoke exposure: No How often do you have a drink containing alcohol: 2-3 times a week How many standard drinks containing alcohol do you have on a typical day: 1 or 2 How often do you have six or more drinks on one occasion: Never AUDIT-C Alcohol total score: 3 Non-prescribed substance use: denies use Little interest or pleasure in doing things: not at all Feeling down, depressed, or hopeless: several days Exam Const: Documenting provider has reviewed patient's vital signs: yes Common normals: no apparent distress and alert General appearance: cooperative, comfortable and well kempt HENMT: Common normals: normocephalic Head and scalp: normocephalic Face and sinus: normal facial exam Mouth: oral and palatal mucosa normal Eye: Common normals: conjunctivae normal General eye: normal appearance of both eyes Conjunctiva: conjunctiva(e) normal Neck & C-Spine: Common normals: full ROM and no lymphadenopathy Resp: Common normals: normal respiratory effort, no use of accessory muscles and clear to auscultation bilaterally Effort & inspection: able to speak in complete sentences Auscultation: clear to auscultation bilaterally Cardio: Common normals: regular rate, regular rhythm, S1 normal heart sound, S2 normal heart sound and no murmurs Rate: regular rate Rhythm: regular rhythm Heart sounds: S1 normal and S2 normal GI: Common normals: Normal to inspection, nondistended, normoactive bowel sounds present, soft to palpation, non-tender, no hepatosplenomegaly and no masses Palpation: soft and no hepatosplenomegaly Extremity: Common normals: normal to inspection, normal capillary refill and no pedal edema Neuro: Sensorium/orientation: alert Speech: speech normal Motor exam: no movement abnormalities noted Psych: Common normals: thought process normal Appearance: well kempt Attitude: engaged Thought process: normal thought process Insight: insight good Judgement: judgment good Skin: Common normals: no rashes or lesions noted General skin exam: no rashes or lesions noted Course Course ED Course: 73-year-old female with recurrent episode of AFib, not anticoagulated. No improvement after 2 hours of use of oral metoprolol. No signs of acute coronary syndrome, congestive heart failure, respiratory distress or other emergent condition. Will obtain basic labs, EKG. Rhythm strip that I observe in the room does clearly show AFib with a rate of 70-90. Will likely require consult from Cardiology to see if they would recommend cardioversion since she is having more frequent episodes and is not anticoagulated or if they would recommend starting an antiarrhythmic or other additional management. Await findings. Reevaluation(s) Reevaluation #1: Labs reviewed, all reassuring. I am uncertain if she would benefit from cardioversion as it sounds as though she is having several these episodes. I think anticoagulation is in order but she may also benefit from an antiarrhythmic. I would like some guidance from Cardiology and have paged. Time of Reevaluation #2: 05:14 Reevaluation #2: I spoke with Cardiology, Dr. Cuenca and have relayed our findings to the patient. Overall, we both agree that since she has been having so many more of these AFib episodes, cardioversion is not ideal. She is not really even symptomatic to her AFib today. If she becomes more symptomatic specifically with chest pain, shortness of breath or other worrisome findings, we can certainly could do a cardioversion but with a risk of possible stroke. Ultimately, we will start her on Eliquis and increase her metoprolol to 25 mg twice daily. Their office will call her Tuesday to see how she is doing and if she has not converted, decide about starting an antiarrhythmic or scheduling her for an outpatient cardioversion 1 she has been on appropriate blood thinners. She and I discussed this extensively. She will get her 1st dose of Eliquis here in the ED and subsequent prescriptions have been sent to her pharmacy. Medications Administered Medications: Discontinued Medications Generic Name Dose Route Start Last Admin Trade Name [place] PRN Reason Stop Dose Admin Sodium Chloride 500 mls @ 500 mls/hr 09/11/23 03:44 09/11/23 04:46 0.9 % Sodium Chloride 500 Ml IV 09/11/23 04:43 Infused .Q1H ONE Infusion Metoprolol Tartrate 25 mg 09/11/23 03:44 09/11/23 03:53 Metoprolol Tartrate 25 Mg Tablet PO 09/11/23 03:45 25 mg ONCE ONE Administration Medical Decision Making Lab Data Lab results reviewed: Yes I reviewed the patient's lab results Lab results narrative: Labs very reassuring. Labs: Lab Results 09/11/23 09/11/23 Range/Units 03:44 03:50 WBC 5.16 (4.50-11.00) K/uL RBC 5.00 (4.00-5.20) m/uL Hgb 14.4 (12.0-16.0) gm/dL Hct 43.6 (33.0-51.0) % MCV 87 (80-100) fL MCH 29 (26-34) pg MCHC 33 (32-36) gm/dL RDW Coeff of Brant 13.6 (11.5-15.5) % Plt Count 191 (140-440) K/uL Neut % (Auto) 52.7 (42.0-72.0) % Lymph % (Auto) 34.3 (20-44) % Towner % (Auto) 9.3 (0.0-11.0) % Eos % (Auto) 2.9 (0.0-7.0) % Baso % (Auto) 0.6 (0.0-3.0) % Neut # (Auto) 2.72 (1.7-7.0) K/uL Lymph # (Auto) 1.77 (0.90-2.90) K/uL Towner # (Auto) 0.50 (0.00-0.90) K/UL Eos # (Auto) 0.15 (0.00-0.50) K/uL Baso # (Auto) 0.03 (0.00-0.30) K/uL Abs Immat Gran (auto) 0.01 (0.00-0.30) K/uL Imm/Tot Granulo (auto) 0.2 % Sodium 141 (135-149) mmol/L Potassium 3.7 (3.6-5.1) mmol/L Chloride 109 (96-114) mmol/L Carbon Dioxide 25 (20-32) mmol/L Anion Gap 7 (7-15) mEq/L BUN 19 (7-30) mg/dL Creatinine 0.8 (0.5-1.5) mg/dL Estimated GFR 79 ml/min Glucose 99 (60-115) mg/dL Calcium 9.4 (8.4-10.6) mg/dL Magnesium 2.1 (1.5-2.6) mg/dL Troponin I < 0.01 L (0.01-0.04) ng/mL NT-Pro-B Natriuret Pep 106 pg/mL TSH 3.410 (0.270-4.200) uIU/mL POC Troponin I 0.00 L (0.01-0.04) ng/ml ECG Data Attestation: I personally reviewed and interpreted this ECG as follows: Prior ECG tracings: available for review Interpretation: Atrial fibrillation, rate 70s. Could possibly be an a flutter with a variable block. Otherwise, normal axis with no obvious ischemic changes. Discharge Plan Discharge Clinical Impression: Atrial fibrillation Qualifiers: Atrial fibrillation type: paroxysmal Qualified Code(s): I48.0 - Paroxysmal atrial fibrillation Patient Disposition: Home, Self-Care Condition: Stable Instructions: A-fib (Atrial Fibrillation) (ED) Additional Instructions: As we discussed, I spoke with Cardiology. They are recommending that we start you on a blood thinner to help prevent to stroke. They are recommending Eliquis. Your given your 1st dose here in the emergency department. You are due for another dose this afternoon. After that dose, you may move to a more convenient twice daily time regimen. They would also like for you to increase her metoprolol to 25 mg twice daily. I have sent a new prescription for each medication. Chances are, you will flip out of atrial fibrillation on your own. Expect a call from the cardiology office on Tuesday. They may elect to start you on an antiarrhythmic medication or just see how things go with this new plan. They will likely want to see you in the office again either this week or in a few weeks. If things have not improved in a few weeks, they will likely want to do a cardioversion. The cardioversion would be much safer once you have been on blood thinners for at least 4 weeks. Please come back to the emergency department right away if you start having chest pain, severe dizziness, significant shortness of breath or other signs that your body is not tolerating this AFib. Activity Level: No Restrictions Discharge Diet: Regular Prescriptions: New Eliquis 5 mg tablet 5 mg PO BID Qty: 60 2RF metoprolol tartrate 25 mg tablet 25 mg PO BID Qty: 60 2RF No Action Calcium 600 with Vitamin D3 600 mg-10 mcg (400 unit) tablet,chewable 2 tab PO BID magnesium 100 mg tablet PO Patient Comments: unsure of strength albuterol sulfate 90 mcg/actuation HFA aerosol inhaler 2 puff inhalation Q4-6H PRN (Reason: shortness of breath or wheezing) Qty: 8.5 0RF anastrozole 1 mg tablet 1 mg PO DAILY Qty: 90 3RF Rx Instructions: Take one tablet by mouth once daily. Fluticasone nasal spray inhalation metoprolol tartrate 25 mg tablet PO PRN Patient Comments: TAKE ONE TABLET DAILY NEEDED FOR ATRIAL FIBRILLATION WITH RAPID HEART RATE clobetasol 0.05 % ointment TOPICAL .3 x week Patient Comments: APPLY THIN LAYER TOPICALLY TO THE AFFECTED AREA tacrolimus 0.1 % ointment TOPICAL DAILY Patient Comments: APPLY TO AFFECTED AREA(S) TOPICALLY trazodone 50 mg tablet 25 - 100 mg PO QDAY Qty: 30 5RF levothyroxine 112 mcg tablet 112 mcg PO DAILY Qty: 90 0RF Follow Up/Referrals: Yary Ash MD [Primary Care Provider] - Stand Alone Forms: Specialized Tech Info Instructions
[2023-09-11] MEDS: 0.9 % SODIUM CHLORIDE 500 ML 500 ML IV (03:53)
[2023-09-11] MEDS: METOPROLOL TARTRATE 25 MG TABLET PO (03:53)
[2023-09-11 04:04] LABS: Basophils Absolute Auto 0.03 K/uL (0.00-0.30); Basophils Percent Auto 0.6 % (0.0-3.0); Eosinophils Absolute Auto 0.15 K/uL (0.00-0.50); Eosinophils Percent Auto 2.9 % (0.0-7.0); Hematocrit 43.6 % (33.0-51.0); Hemoglobin* 14.4 gm/dL (12.0-16.0); Immature Granulocytes Abs Auto 0.01 K/uL (0.00-0.30); Immature Granulocytes Pct Auto 0.2 %; Lymphocytes Absolute Auto 1.77 K/uL (0.90-2.90); Lymphocytes Percent Auto 34.3 % (20-44); Mean Corpuscular HGB Conc 33 gm/dL (32-36); Mean Corpuscular Hemoglobin 29 pg (26-34); Mean Corpuscular Volume 87 fL (80-100); Monocytes Percent Auto 9.3 % (0.0-11.0); Neutrophils Absolute Auto 2.72 K/uL (1.7-7.0); Neutrophils Percent Auto 52.7 % (42.0-72.0); Platelet Count* 191 K/uL (140-440); RDW Coefficient of Variation % 13.6 % (11.5-15.5); White Blood Count* 5.16 K/uL (4.50-11.00)
[2023-09-11 04:06] LABS: Slide Review Reflex No
[2023-09-11 04:12] LABS: Chloride* 109 mmol/L (96-114); Potassium* 3.7 mmol/L (3.6-5.1); Sodium* 141 mmol/L (135-149)
[2023-09-11 04:15] LABS: Anion Gap 7 mEq/L (7-15); Carbon Dioxide* 25 mmol/L (20-32); Creatinine* 0.8 mg/dL (0.5-1.5); Estimated Glomerular Filt Rate 79 ml/min
[2023-09-11 04:16] LABS: Blood Urea Nitrogen* 19 mg/dL (7-30); Calcium* 9.4 mg/dL (8.4-10.6); Glucose* 99 mg/dL (60-115); Magnesium* 2.1 mg/dL (1.5-2.6)
[2023-09-11 04:28] LABS: NT Pro B Type NatriureticPept* 106 pg/mL; Troponin I* < 0.01 ng/mL (0.01-0.04)
[2023-09-11] MEDS: APIXABAN 5 MG TABLET PO (05:33)
== END 2023-09-11 05:33 | disposition home or self-care (01) ==
PROVIDERS: Emergency Provider Family Medicine; PCP Family Medicine
DX: I48.0 Paroxysmal atrial fibrillation (principal)
CPT/HCPCS: 36415; 80048; 83735; 83880; 84443; 84484; 85025; 93005; 94761; 99284; A9270; J7030

== ENCOUNTER 2023-09-28 19:39 | Outpatient (CLI) | payer MEDICARE, BC, SELFPAY ==
--- OUTSIDE RECORDS SUMMARY | 2023-09-28 19:44 | XMS_ITS | Clinical Summary ---
Author Organization [facility] Address [place], [place] [address] Care Team Providers Care Industrial Technology Teacher Name Role Phone Yary Ash MD Primary Care Provider [phone] [phone] Allergies Active Allergy Reactions Criticality Noted Date [...] per actuation) nasal solution (FLONASE) Inhale 1 [place] in the nostril(s) once daily. 1 Bottle [...] Vit D once daily 0 03/24/2022 Active levothyroxine (SYNTHROID) 112 mcg tablet Take 112 mcg by mouth. 06/16/2019 Active traZODone (DESYREL) 50 mg tablet TAKE ONE-HALF TO 2 TABLETS BY MOUTH EVERY DAY Active metoprolol tartrate (LOPRESSOR) 25 mg tabletIndications :Paroxysmal atrial fibrillation (HC) Take 1 Tablet (25 mg) by mouth two times daily. 180 Tablet 1 09/22/2023 Active metoprolol tartrate (LOPRESSOR) 25 mg tabletIndications :Paroxysmal atrial fibrillation (HC) TAKE 1 TABLET BY MOUTH DAILY NEEDED FOR ATRIAL FIBRILLATION WITH RAPID HEART RATE 90 Tablet 04/07/2023 4 Discontinu ed(*Medica tion adjustment ) Active Problems Problem Noted Date Diagnosed Date Adhesive capsulitis of shoulder 10/27/2006 Pain in joint, shoulder region 09/19/2006 Overview: L. shoulder adhesive capsulitis Cervicalgia 09/19/2006 Overview: cervical herniation Encounters Date Type Department Care Team Description 09/21/[address] [place] [address] Linden San MD Questions 08/10/2023 Nurse/Clinic Staff Only [facility] [address] [address] Linden San MD 08/10/2023 Travel 08/09/[address] [place] [address] Linden San MD Medication Management; Atrial Fibrillation 08/01/[address] [place] [address] Linden San MD 07/25/2023 9:00 AM CDT Office Visit [facility] [address] [place] [address] Cardiovascular Diagnostic Testing (Stress echo) 07/25/2023 Travel 07/01/2023 11:00 AM CDT Office Visit [address] [place] [address] Linden San MD Follow Up; CV General Cardiology Est (Annual ) 07/01/2023 Orders Only [address] [place] [address] Suma Cazares 1 scan: (1-Ord) EKG signed 07/01/2023 from Last [...] 37 ??C (98.6 ??F) 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 Respiratory Rate - - Oxygen Saturation 99% [...] PCV) 2017 COVID-19 vaccine series (4 - season) 2022 01/30/2021, 06/20/2020, 05/23/2020 Influenza for age 65+ 12/04/2023 04/02/2008 BMI (ht and wt on same day) for age 18+ 06/30/2024 07/01/2023 Procedures Procedure Name Priority Date/Time Associated Diagnosis Comments EKG 12 LEAD Routine 08/10/2023 1:29 PM CDT Paroxysmal atrial fibrillation (HC) ECHO STRESS EXERCISE WO CONTRAST W COLOR W LTD DOPPLER Routine 07/25/2023 10:08 AM CDT Paroxysmal atrial fibrillation (HC) MO CV STRS TST XERS&/OR RX CONT ECG [...] QT 364 ms QTc 417 ms P [place] 75 degrees R [place] 94 degrees T [place] 76 degrees 08/10/2023 1:29 PM CDT 08/11/2023 [...] CDT STRESS ECHOCARDIOGRAM EUGENIA ELIZONDO ?Accession#: ?? [id number] : ?1950 73 years Study Date: ?? 07/25/2023 9:18:18 AM Gender: F ? BP: ? 126/61 mmHg Height: 168.00 cm ? BSA: ?1.90 m? ? ? Weight: 80.00 kg ?Tech: ? MBF ?Referring MD: LINDEN SAN Site: ? [facility] Reading Location: Mobile OP Patient Location: Outpatient. [...] % of Max ? 108% Double Product [id number] Echo Findings:This is a negative stress echo [...] [place] [address]. Maximum stress test with 107.6% of age [...] . This study was interpreted by an [facility] accredited facility. ??Final ?? Procedure Note Kuhs Torres MD - 07/25/2023 STRESS ECHOCARDIOGRAM EUGENIA ELIZONDO : 1950 73 years Study Date: 07/25/2023 9:18:18 AM Gender: F BP: 126/61 mmHg Height: 168.00 cm BSA: 1.90 m? ? ? Weight: 80.00 kg Tech: WILLI Referring MD: LINDEN BRAR CTSOFIA Site: [facility] Reading Location: Mobile OP Patient Location: Outpatient. [...] 149 % of Max 108% Double Product [id number] Echo Findings:This is a negative stress echo test for ischemia. Poststress, decreased left ventricular size, increased global systolicfunction with an estimated EF of 70 to 75%. LV regional wall motionabnormalities are not present post exercise. EKG:See separate report for EKG interpretation. Exam Protocol:The patient presents with no significant symptoms atbaseline. The patient exercised 6 min 41 sec to stage III according to [facility] stress echo protocol. Test terminated due to shortness of breath.10.2 METS were achieved. The patient achieved a heart rate of 160 bpmwhich is 107.6% of maximum predicted heart rate. Maximum systolic bloodpressure was 150 [place] [address]. Maximumstress test with 107.6% of age predicted [...] . This study was interpreted by an [facility] accredited facility. Final Linden San MD ECHO ORD * MO CV STRS TST XERS&/OR RX CONT ECG W/SI&R (07/25/2023 12:00 AM CDT) Starla Ann MD PB - CARDIOVAS [email or web address] * SCAN-MAMMOGRAPHY REPORT (07/01/2008 12:00 AM CDT) Anatomical Region Laterality Modality Other Narrative Procedure Note Scanner - 07/01/2008 12:00 AM CDT Scanner OTHER from Last 3 Months or Most Recently Relevant to Health Maintenance Care Teams Industrial Technology Teacher Relationship Specialty Start Date End Date Yary Ash MD [address] [place] [place] [id number] PCP - General 07/25/23
--- OUTSIDE RECORDS SUMMARY | 2023-09-28 19:44 | XMS_ITS | Clinical Summary ---
Author Organization [facility] Address [address] [place] [address] Care Team Providers Care Senior Lead Java Developer Name Role Phone Estrada CHARLES MD, [facility] Primary Care Provider [phone] Source Comments You are receiving this document as you are listed as the primary care provider,follow-up provider, or the patient has been referred to you for consultation.This is in compliance with the Medicare and[facility] EHR Incentive Program,which states Providers who transition their patient to another setting of careor provider of care or refers their patient to another provider of care shouldprovide summary care record for each transition of care or referral. [employer] Allergies Active Allergy Reactions Criticality Noted Date [...] age to complete this topic Care Teams Senior Lead Java Developer Relationship Specialty Start Date End Date Akbar Dorado III, MD [address] [id number] PCP - General 4/4/11
--- NOTE | 2023-10-04 12:28 | W.PM.SLEEP ---
Sleep Study Details Details Interpreting Provider: Benjamin Date of Sleep Study: 09/28/23 Sleep Study Details: STUDY TYPE:? Home unattended ? BMI:? 28.3 ORDERING PROVIDER:Tammy Alexander INDICATION:? Concerned about sleep apnea, and atrial fibrillation ? SLEEP SUMMARY:? 433 minutes monitored RESPIRATORY SUMMARY:? AHI 2.4, supine AHI 20.3. Low oxygen 91 Snoring 43.1% PERIODIC LIMB MOVEMENTS OF SLEEP:? Not recorded CARDIAC:? Range 53-91, mean 59.9 IMPRESSION:? The over this overall study is within normal limits. However the patient does have moderate sleep apnea with an AHI of 20.3 in the supine position RECOMMENDATION: Patient should avoid supine sleep. If it is necessary for the patient to sleep supine, treatment for the obstructive sleep apnea present in that position may be indicated.
== END 2023-09-28 19:40 | disposition home or self-care (01) ==
LOC: SLEEP 19:42
PROVIDERS: PCP Family Medicine; Visit Provider Otolaryngology
DX: G47.30 Sleep apnea, unspecified (principal); G47.10 Hypersomnia, unspecified; R06.83 Snoring
CPT/HCPCS: 95806

== ENCOUNTER 2023-11-03 12:06 | Outpatient (CLI) | payer MEDICARE, BC, SELFPAY ==
--- OUTSIDE RECORDS SUMMARY | 2023-11-03 12:10 | XMS_ITS | Clinical Summary ---
Author Organization [facility] Address [place], [place] [address] Care Team Providers Care Cargo Inspector Name Role Phone Yary Ash MD Primary Care Provider [phone] [phone] Allergies Active Allergy Reactions Criticality Noted Date [...] per actuation) nasal solution (FLONASE) Inhale 1 [place] in the nostril(s) once daily. 1 Bottle [...] DAY Active metoprolol tartrate (LOPRESSOR) 25 mg tabletIndications: Paroxysmal atrial fibrillation (HC) Take 1 Tablet (25 mg) by mouth two times daily. 180 Tablet 1 09/22/2023 Active Active Problems Problem Noted Date Diagnosed Date Adhesive capsulitis of shoulder 10/27/2006 Pain in joint, shoulder region 09/19/2006 Overview: L. shoulder adhesive capsulitis Cervicalgia 09/19/2006 Overview: cervical herniation Encounters Date Type Department Care Team Description 09/21/[address] [place] [address] Linden San MD Questions 08/10/2023 Nurse/Clinic Staff Only [facility] at [address] [address] Linden San MD 08/10/2023 Travel 08/09/[address] [place] [address] Linden San MD Medication Management; Atrial Fibrillation from Last 3 Months Immunizations Name Administration [...] 37 ??C (98.6 ??F) 02/08/2008 1:00 PM PUSHER RUNNER Respiratory Rate - - Oxygen Saturation 99% [...] 1:29 PM CDT Paroxysmal atrial fibrillation (HC) SCAN-MAMMOGRAPHY REPORT 07/01/2008 12:00 AM CDT from Last 3 Months or Most Recently Relevant to Health Maintenance Results * EKG 12 LEAD (08/10/2023 1:29 PM CDT) Interpretation Normal sinus rhythm Rightward axis Borderline ECG No previous ECGs available Ventricular Rate 79 BPM Atrial Rate 79 BPM P-R Interval 152 ms QRS Duration 98 ms QT 364 ms QTc 417 ms P [place] 75 degrees R [place] 94 degrees T [place] 76 degrees 08/10/2023 1:29 PM CDT 08/11/2023 3:29 PM CDT Linden San MD EKG ORD * SCAN-MAMMOGRAPHY REPORT (07/01/2008 12:00 AM CDT) Anatomical Region Laterality Modality Other Narrative Procedure Note Scanner - 07/01/2008 12:00 AM CDT Scanner OTHER from Last 3 Months or Most Recently Relevant to Health Maintenance Care Teams Cargo Inspector Relationship Specialty Start Date End Date Yary Ash MD [address] [place] [id number] PCP - General 07/25/23
--- OUTSIDE RECORDS SUMMARY | 2023-11-03 12:10 | XMS_ITS | Clinical Summary ---
Author Organization [facility] Address [address] [place] [address] Care Team Providers Care Control Clerk Name Role Phone Estrada CHARLES MD, [facility] Primary Care Provider [phone] Source Comments You are receiving this document as you are listed as the primary care provider,follow-up provider, or the patient has been referred to you for consultation.This is in compliance with the Medicare and[facility] EHR Incentive Program,which states Providers who transition their patient to another setting of careor provider of care or refers their patient to another provider of care shouldprovide summary care record for each transition of care or referral. [facility] Allergies Active Allergy Reactions Criticality Noted Date [...] every 6 hours as needed. Active calcium carbonate-vitami n D (OYSTER SHELL CALCIUM/D) 500-200 MG-UNIT per tablet Take 1 Tablet by mouth daily with breakfast. Active fluticasone propionate (FLONASE) 50 MCG/ACT nasal solution 2 Sprays by Nasal route. Active Magnesium Gluconate (AKA MAGONATE) 500 MG tablet Take 1 Tablet (500 mg) by mouth. Active traZODone (DESYREL) 50 MG tablet Pt reports taking 75 mg daily. 10/19/2022 Active clobetasol (TEMOVATE) 0.05 % ointment Apply a thin layer 3 times weekly. 60 g 3 06/01/2023 Active tacrolimus (PROTOPIC) 0.1 % ointment Apply 1-2 times a day. 60 g 3 06/01/2023 Active Generic Medication (COMPOUNDED CREAM) DHEA 5 mg/g in versabase. Apply a pea sized amount to vulva and vestibule 3 times weekly. 30 g 5 11/01/2023 Active Generic Medication (COMPOUNDED CREAM) DHEA 5 mg/g in versabase. Apply a pea sized amount to vulva and vestibule 3 times weekly. 30 g 5 06/01/2023 11/01/2023 Discontinued (*Med change OR same med OR reorder, new dose/directi ons) Active Problems Problem Noted Date Diagnosed Date [...] 2) 2002 Dexa 2017 COVID-19 Vaccine ( - season) 2022 01/30/2021, 06/20/2020, 05/23/2020 Influenza (#1) 2023 02/09/2023, 12/04/2021, 01/30/2021, Additional history exists DTaP/Tdap/Td (2 - Tdap) 01/26/2024 01/25/2014 Pneumococcal 65+ Yrs Completed 02/08/2018, 03/24/20 17 HepA Aged Out No longer eligi ble [...] age to complete this topic Care Teams Control Clerk Relationship Specialty Start Date End Date Akbar Dorado III, MD [address] [id number] PCP - General 07/06/10
== END 2023-11-03 12:07 | disposition home or self-care (01) ==
PROVIDERS: PCP Family Medicine; Visit Provider Family Medicine
DX: Z00.00 Encounter for general adult medical examination without abnormal findings (principal); E78.5 Hyperlipidemia, unspecified; E03.9 Hypothyroidism, unspecified; E06.3 Autoimmune thyroiditis; E03.8 Other specified hypothyroidism
CPT/HCPCS: 80053; 80061; 84443

== ENCOUNTER 2023-11-21 10:30 | Outpatient (RCR) | payer MEDICARE, BC, SELFPAY ==
--- NOTE | 2023-06-07 13:42 | ONC.NURNOTE ---
PT referral faxed to [facility] in [place].
== END 2023-12-03 23:59 | disposition home or self-care (01) ==
LOC: CCIC 10:30
PROVIDERS: PCP Family Medicine; Visit Provider Physician Assistant
DX: C50.911 Malignant neoplasm of unspecified site of right female breast (principal); Z17.0 Estrogen receptor positive status [ER+]; Z79.811 Long term (current) use of aromatase inhibitors; M85.80 Other specified disorders of bone density and structure, unspecified site; G47.00 Insomnia, unspecified; I48.0 Paroxysmal atrial fibrillation
CPT/HCPCS: 99215; G0463

== ENCOUNTER 2024-02-08 12:50 | Outpatient (CLI) | payer MEDICARE, BC, SELFPAY ==
--- OUTSIDE RECORDS SUMMARY | 2024-02-08 12:53 | XMS_ITS | Clinical Summary ---
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 0 0 Active levothyroxine (SYNTHROID) 112 mcg tablet Take 1 tablet by mouth before breakfast. 0 0 Active albuterol HFA 90 mcg/actuation inhaler Inhale 2 Puffs by mouth 4 times daily if needed. 0 0 Active fluticasone (50 mcg per actuation) nasal solution (FLONASE) Inhale 1 Fabius in the nostril(s) once daily. 1 Bottle 0 Active acetaminophen (Tylenol Extra Strength) 500 mg tablet Take 1 Tablet (500 mg) by mouth every 6 hours if needed. Max acetaminophen dose: 4000mg in 24 hrs. 0 1 Active clobetasol cream 0.05% (TEMOVATE) 0.05 % cream Apply topically to affected area(s). three times a week 0 2 Active MAGNESIUM OXIDE ORAL Take 3 Capsules by mouth once daily in the evening. 0 2 Active medication order composer Per pt Calcium Carbonate + Vit D once daily 0 2 Active traZODone (DESYREL) 50 mg tablet 75 mg. Active metoprolol succinate (Toprol XL) 25 mg Sustained-Releas e tabletIndication s:Paroxysmal atrial fibrillation (HC) Take 1 Tablet (25 mg) by mouth once daily. 90 Tablet 3 4 Active fish oil-omega-3 fatty acids 1,000-340 mg capsule Take 1 Capsule by mouth two times daily. 4 Active apixaban (Eliquis) 5 mg tabletIndication s:PAF (paroxysmal atrial fibrillation) (HC) Take 1 Tablet (5 mg) by mouth two times daily. 60 Tablet 5 4 Active medication order composer Apply topically to affected area(s) every Tuesday, Tuesday and Tuesday. DHEA cream - applied to labia/vaginal area Active tacrolimus (PROTOPIC) 0.1 % ointment Apply topically to affected area(s) once daily in the morning. Active RED YEAST RICE ORAL Take 2 Capsules by mouth once daily with lunch. Active flecainide (TAMBOCOR) 50 mg tabletIndication s:Paroxysmal atrial fibrillation (HC) Take 1 Tablet (50 mg) by mouth every 12 hours. through 02/27/2024, then stop. 4 Active pantoprazole (PROTONIX) 40 mg delayed-release tabletIndication s:S/P ablation of atrial fibrillation Take 1 Tablet (40 mg) by mouth once daily. for 2 weeks post-ablation, then stop. 14 Tablet 4 Active furosemide (LASIX) 20 mg tabletIndication s:Paroxysmal atrial fibrillation (HC),S/P ablation of atrial fibrillation Take 1 Tablet (20 mg) by mouth once daily in the morning. as needed for fluid retention until weight is back to baseline after ablation 5 Tablet 4 Active levothyroxine (SYNTHROID) 112 mcg tablet Take 112 mcg by mouth. 0 Discontinued(Ph armacist change per medication history (E-cancel not sent)) flecainide (TAMBOCOR) 50 mg tabletIndication s:Paroxysmal atrial fibrillation (HC) Take 1 Tablet (50 mg) by mouth every 12 hours. Stop for heart rate less than 50 beats per minute and contact cardiology. 180 Tablet 3 08/ 024 Discontinued Active Problems Problem Noted Date Diagnosed Date Adhesive capsulitis of shoulder 10/27/2006 Pain in joint, shoulder region 09/19/2006 Overview (09/19/2006): L. shoulder adhesive capsulitis Cervicalgia 09/19/2006 Overview (09/19/2006): cervical herniation Encounters Date Type Department Care Team Description 02/08/2024 Telephone [facility] [address] [address] Gregoria Zheng MD Questions 01/16/2024 8:17 AM CDT Anesthesia Event [facility] [address] [place] [address] Sal Mckeon MD Swenson, Emily A, CRNA 01/16/2024 6:25 AM CDT - 01/16/2024 4:51 PM CDT Hospital Encounter [facility] [address] [place] [address] Gregoria Zheng MD Milshteyn, Mark L, MD S/P ablation of atrial fibrillation (Primary Dx); Paroxysmal atrial fibrillation (HC) Discharge Disposition: Home Self Care 01/16/2024 Travel 01/11/2024 Telephone [facility] [address] [address] Gregoria Zheng MD Concerns 01/03/2024 Telephone [facility] [address] [address] Regina Peguero NP Appointment (Afib Class) 12/20/2023 10:00 AM CDT Ancillary Procedure [facility] [address] [facility] [address] [place] [address] 12/20/2023 9:20 AM CDT Orders Only [facility] [address] [facility] [address] [place] [address] Lab 12/20/2023 Travel 12/15/2023 Telephone [facility] [address] [facility] [address] [place] [address] Cintia Richardson RN 12/08/2023 8:00 AM CDT Office Visit [facility] [address] [place] [address] Gregoria Zheng MD CV Electrophysiology New (Initial CV EP visit. Dx: PAF. Pt reports PAF episodes increasing since June 2023. Pt C/O dizziness, fatigue, low BP. ) 12/08/2023 Travel 12/02/2023 Telephone [facility] [address] [place] [address] Linden San MD 11/25/2023 Travel 11/21/2023 Telephone [facility] [address] [facility] [address] [place] [address] Linden San MD Medication Management 11/17/2023 Telephone [facility] [address] [facility] [address] [place] [address] Linden San MD Concerns from Last 3 Months Immunizations Name Administration Dates Next Due Influenza, IIV3 (Age >=3 years) 04/02/2008 Social History Tobacco Use Types Packs/Day Years Used Date Smoking Tobacco: Never Smokeless Tobacco: Never Alcohol Use Standard Drinks/Week Comments Yes 0 (1 standard drink = 0.6 oz pur e alcohol) very occasional Financial Resource Strain Answer Date R ecorded Difficulty of Paying Living Expenses Not on file 04/04/2021 Difficulty of Paying Living Expenses Not on file 04/04/2021 Sex and Gender Information Value Date Recorded Sex Assigned at Not on file Gender Identity Not on file Sexual Orientation Not on file Obstetrics History Last Filed Vital Signs Vital Sign Reading Time Taken Comments Blood Pressure 106/60 01/16/2024 4:32 PM CDT Pulse 71 01/16/2024 1:25 PM CDT Temperature 36.8 ??C (98.2 ??F) 01/16/2024 1 2:00 PM CDT Respiratory Rate 18 01/16/2024 12:0 0 PM CDT Oxygen Saturation 95% 01/16/2024 1:25 PM CDT Inhaled Oxygen Concentration - - Weight 76.5 kg (168 lb 11.2 oz) 01/16/2024 6:56 AM CDT Height 167.6 cm (5' 6) 01/16/2024 6:56 AM CDT Body Mass Index 27.23 01/16/2024 6:56 AM CDT Plan of Treatment Upcoming Encounters Date Type Department Care Team (Late st Contact Info) Description 04/25/2024 8:30 AM TRAINING AND 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 Office Visit [facility] [address] [facility] [address] [place] [address] Gregoria Zheng MD [address] [facility] [address] [place], [place] [id number] Health Maintenance Due Date Last Done Comments [...] PCV) 2017 COVID-19 vaccine series ( season) 2023 01/30/2021, 06/20/2020, 05/23/2020 Influenza for age 65+ 12/04/2023 04/02/2008 BMI (ht and wt on same day) for age 18+ 12/07/2024 12/08/2023, 07/01/2023 Procedures Procedure Name Priority Date/Time Associated Diagnosis Comments EKG 12 LEAD PEGGY 01/16/2024 3:49 PM CDT SCAN-CARDIAC STRIP 01/16/2024 1: 06 PM CDT EKG 12 LEAD Today 01/16/2024 12:56 PM CDT [facility] ACTIVATED CLOTTING TM CV Timed 01/16/2024 10:44 AM CDT [facility] ACTIVATED CLOTTING TM CV Timed 01/16/2024 10:01 AM CDT [facility] ACTIVATED CLOTTING TM CV Timed 01/16/2024 9:20 AM CDT ENDOTRACHEAL TUBE Routine 01/16/2024 9:0 2 AM CDT ENDOTRACHEAL TUBE Routine 01/16/2024 9:0 2 AM CDT ENDOTRACHEAL TUBE Routine 01/16/2024 9:0 2 AM CDT EP STUDY /ABLATION Routine 01/16/2024 8: 59 AM CDT EKG 12 LEAD Preop 01/16/2024 7:27 AM CDT CBC W PLT NO DIFF Preop 01/16/2024 7:2 4 AM CDT BASIC METABOLIC PANEL Preop 01/16/2024 7:24 AM CDT SCAN-CARDIAC STRIP 01/16/2024 12 :00 AM CDT CREATININE,ISTAT Routine 12/20/2023 1:39 PM CDT PAF (paroxysmal atrial fibrillation) (HC) CT CARDIAC MORPHOLOGY W DUAL READ Routine 12/20/2023 10:27 AM CDT PAF (paroxysmal atrial fibrillation) (HC) EKG 12 LEAD Routine 12/08/2023 PAF (paroxysmal atrial fibrillation) (HC) EKG 12 LEAD Routine 11/25/2023 9:24 AM CDT Paroxysmal atrial fibrillation (HC) SCAN-MAMMOGRAPHY REPORT 07/01/2008 12:00 AM CDT from Last 3 Months or Most Recently Relevant to Health Maintenance Results * EKG (01/16/2024 3:49 PM CDT) Only the most recent of5 resultswithin the time period is included. Interpretation Normal sinus rhythm Rightward axis Borderline ECG When compared with ECG of 16-Jan-2024 12:56, No significant change was found BEYOND NOW Ventricular Rate 70 BPM BEYOND NOW Atrial Rate 70 BPM BEYOND NOW P-R Interval 170 ms BEYOND NOW QRS Duration 100 ms BEYOND NOW QT 408 ms BEYOND NOW QTc 440 ms BEYOND NOW P [place] 77 degrees BEYOND NOW R [place] 97 degrees BEYOND NOW T [place] 63 degrees BEYOND NOW 01/16/2024 3:49 PM CDT 01/17/2024 9:32 AM CDT Gregoria Zheng MD EKG ORD Performing Organization Address City/[facility]/ZIP Co de Phone Number BEYOND NOW [place], [place] * SCAN-CARDIAC STRIP (01/16/2024 1:06 PM CDT) Scanner OTHER * ACTIVATED CLOTTING TIME LAR436 ACT (01/16/2024 10:44 AM CDT) Only the most recent of3 resultswithin the time period is included. Pathologist [facility] ACTIVATED CLOTTING TIME, POCT 94 74 - 125 sec 01/16/2024 11:01 AM CDT [facility] [employer] [facility] Blood BLOOD SPECIMEN / Unknown 01/16/2024 10:44 AM CDT 01/16/2024 11:01 AM CDT Gregoria Zheng MD [facility] [address] [place] [address], * [facility] TUBE PR1, [facility] KIT CO2 DETECTOR PR5, [facility] STYLET PR1 (01/16/2024 9:02 AM CDT) Narrative Kelsey Phillips CRNA - 01/16/2024 9:02 AM CDT Kelsey Phillips CRNA ? 01/16/2024 ??9:06 AM Procedure: ETT Patient location during procedure: procedure room ETT Properties Mask Ventilation: easy Final Technique: direct laryngoscopy Type: straight Location: oral Cuffed: yes Tube Size: 7.0 mm Stylet: yes Laryngoscope Blade: Mac Blade Size: 3 Cormack-Lehane Grade View: 2 Insertion Attempts: 1 Placement Verification: auscultation, end tidal CO2 and symmetrical chest wall movement Assessment: pharynx clear, atraumatic and dentition unchanged Secured at: 21 Measured From: lips Difficulty: 0 (not difficult) Sal Mckeon MD ANESTHESIA PX NOTE O RDERABLES * EP STUDY /ABLATION (01/16/2024 8:59 AM CDT) Anatomical Region Laterality Modality X-Ray Angiograph y, X-Ray Angiography 01/16/2024 8:59 AM CDT Narrative Transcriptions Gregoria Zheng MD - 01/16/2024 3:25 PM CDT [facility] Electrophysiology Procedure Report Name: EUGENIA ELIZONDO Event Date: 01/16/2024 [facility] ID #: [id number] Date: 1950 Gender: Female Age: 73 SPRING #: [id number] Procedure Performed By: GREGORIA ZHENG [facility] Referring Physician: Summary / Conclusions VASCULAR ACCESS * Using ultrasound guidance and a percutaneous technique, the rightfemoral vein was accessed. Ultrasound was used to confirm vessel patency,localizing needle into the lumen of the vessel. For safety purposes, apicture was saved for the medical record. ARRHYTHMIA * Paroxysmal atrial fibrillation observed, with successful ablation. * Spontaneous typical atrial flutter with successful ablation. * Empiric cavotricuspid isthmus ablation for typical atrial flutter. POST ABLATION * Patient observed for at least 30 minutes post ablation, prior tocatheter removal. * Post ablation testing with isoproterenol infusion revealed normal basicintervals. DISCUSSION * Complex Ablation: AF/AFL * ICE Catheter utilized during procedure. Recommendations / Plan Preoperative Diagnosis: PAF Procedure: AF ablation Findings/Conclusions: Successful CTI abltion with bidirectional block for typical atrialflutter AF easily inducible with burst pacing at 280ms on the posterior LA Successful Pulmonary Vein Antrum isolation No inducible arrhythmias post ablation despite isoproterenol at5cmg/minute and burst pacing to 200ms on the posterior LA Normal HV Postoperative Diagnosis: Same as preoperative diagnosis Complications: NA Personally monitored patient with conscious sedation during procedure:No Estimated Blood Loss: minimal Specimen: N/A Plan: Bedrest x 3 hours Pull sheaths when ACT < 180 Decadron 8mg IV given in lab Protamine 40mg IV given in lab Observe on telemetry while on bedrest Protonix 40mg PO daily for two weeks Aspirin PO once today Resume home Rx Continue Flecainide for 6 weeks then may discontinue Continue Metoprolol succinate 25mg daily until follow up Resume AC with Eliquis Anticipate discharge after bedrest if groin stable later today Follow up as scheduled with Dr. Zheng Pre-Operative Diagnosis ? Atrial Fibrillation, Paroxysmal Post-Operative Diagnosis ? Same as Pre-operative diagnosis Indications ? Same as Pre-operative diagnosis Brief Patient History Comments * 73-year-old female with structurally normal heart by echocardiographyand recurrent sustained symptomatic paroxysmal atrial fibrillation despitetreatment with rate controlling therapy with metoprolol and antiarrhythmicdrug therapy with flecainide suffers palpitations and tachycardia whichshe finds untenable. She has been referred for evaluation for catheterablation. I think she is an ideal candidate given the paroxysmal natureof her atrial fibrillation and absence of other medical or cardiovascularproblems. We discussed the mechanisms of atrial fibrillation and catheterablation at length and answered her questions. Consent & Weaver Protocol Weaver protocol was followed. TIME OUT conducted just prior tostarting procedure confirmed patient identity, site/side, procedure,patient position, and availability of correct equipment and implants (ifapplicable). The risks, benefits, and alternatives of the procedure were discussed withthe patient and written informed consent was obtained. Procedure Description The patient was brought to the electrophysiology lab in a fasting stateand in normal sinus rhythm. General anesthesia was administered by the anesthesia service. Both groins were prepped and draped in the appropriate fashion. Under ultrasound guidance and local anesthetic, sheaths were placed in theRight Femoral Vein: 8Fr, 7 Fr and a 9Fr long sheath. Catheters were introduced into their appropriate locations in the heartunder ultrasound guidance. The intracardiac echo catheter was advanced into the right atrium and wasutilized to assist with the trans-septal puncture, for continuousmonitoring for effusion, as well as visualization of the catheter-tissueinterface within the left atrium. There was no evidence of LA Appendagethrombus. The ablation catheter was advanced to the RA via the Preface sheath andmapping was performed. The CTI was long and flat with a prominent Eustachian Ridge. Ablation was initiated at 40 olson with 10-15g contact force and goodstability from the annulus back to the IVC. With completion of the line, there was bidirectional block. I elected to move on to the LA and return to the CTI to recheck the lineat procedure end. Single transseptal puncture was performed under ICE guidance using aBrockenbrough needle through Preface sheath. Transseptal puncture wasperformed under direct visualization using intracardiac echocardiographyand agitated saline. Heparin was immediately given prior to transseptalaccess and patient was maintained on Heparin with an ACT between 300-350seconds throughout the left atrial access. Using a Biosense Octaray catheter, a QDOT irrigated tip catheter and CARTO3-dimensional mapping system a geometry for the left atrium created withcareful identification of the location of the pulmonary veins, thepulmonary vein antra, the ridge between the left pulmonary veins and theappendage, the mitral annulus as well as the left atrial appendage. The location of the esophagus was identified using the esophageal mappingcatheter, a thermistor and the CT reconstruction. Continuous esophagealtemperature monitoring aided in guiding lesion delivery. The esophaguscoursed behind the mid LA and was remote from sites of ablation. The posterior wall was addressed using skip lesions along the courseproximate to the esophagus and consolidated later in the case to achieveisolation of the LCVP. Catheter ablation was initiated at 90W for 4 seconds (Q+) at the highposterior wall outside the Left Common PV antrum and carried inferiorlyand forward along the floor to the lip between the LCPV and the LAappendage. The roof was then ablated with 50W 10 second (Q) lesions backto the posterior lesionset and forward down the anterior lip. LCPV ablation resulted in LCPV isolation with entrance and exit blockdemonstrable with pacing for the remainder of the case. Next the RSPV was targeted with ablation beginning at the high posteriorwall and carried inferiorly and forward along the floor to the anteriorseptum. The anterior septal aspect of the RCPV was ablated at 50W and 10seconds. The ronnie was ablated with 6 second lesions where needed. Isolation of the RSPV and the RIPV complex was confirmed with pacing. Isoproterenol infusion was initiated and burst pacing performed afterdemonstration of isoproterenol effect. AF was no longer inducible. The Preface sheath and the ablation catheter were withdrawn from the leftatrium. Pacing across the CTI confirmed durable bidirectional block across theCTI. Comprehensive electrophysiology study was performed as detailed in theCardiodoc document and in the EP study details listed below. There was noevidence of dual AV node physiology or accessory pathway. After a waiting period and reconfirming bidirectional block across the PVlesionsets, all the catheters were withdrawn from the vasculature and thepatient was given protamine to reverse the heparin effect. There was noevidence of pericardial effusion on intracardiac echo at procedure end.Patient was transferred to the recovery area where the sheaths will beremoved. COMPLICATIONS There were no obvious complications observed. Electrophysiology Study Data Basic Intervals Study State Underlying Rhythm Cycle Length PA PA AH HV QRS [place] QRSMorphology Baseline NSR 1061 191 Post Ablation Isuprel NSR 466 142 Ablation Data Atrial Fibrillation Energy Source Ablation Catheter Used Rhythm During Ablation # of AttemptsMax Olson Max Temp. Result RF QDot Micro NSR 64 90 34 Success Esophageal Baseline Temp: 36.1o C Esophageal Peak Temp: 36.3o C Max Temp Increase During Ablation: 0.1o C Left atrial lesion sets were placed. The left inferior pulmonary vein was isolated. The left superior pulmonary vein was isolated. The right inferior pulmonary vein was isolated. The right superior pulmonary vein was isolated. A circumferential lesion set was placed around the right pulmonaryveins. A circumferential lesion set was placed around the left pulmonary veins. Comments: Total Ablation Time (sec): 752 Atrial Flutter Energy Source Ablation Catheter Used Rhythm During Ablation # of AttemptsMax Olson Max Temp. Result RF QDot Micro NSR 21 40 25 Success Cavotricuspid isthmus ablation was performed. (Pre) (Post) CS-ABL Site: 48 170 Catheter Use Catheter Type Catheter Description Insertion Site Intracardiac Site SheathSize Sheath Type Sheath Description Diagnostic Level 1 Esophageal/Rectal Temperature Probe Esophagus Esophagus Diagnostic EsophaStar Esophageal Mapping Catheter, 125 cm EsophagusEsophagus Diagnostic SoundStar 3D Diagnostic Ultrasound Catheter Right Femoral VeinHRA 9F Standard Sidearm Diagnostic/Map DecaNav F-Curve Decapolar 2-8-2 spacing Right Femoral VeinCS 7 Fr Standard Sidearm Diagnostic/Map OCTA,GALAXY,3-3-3-3-3,F-CURVE Right Femoral Vein Map/Abl 8Fr Guide Preface Ablation QDot Micro Bi-Directional Right Femoral Vein Map/Abl 8 Fr GuidePreface Complications ? No complications Procedure(s) Performed ? A Fib/PV Isolation Ablation ? Ablation of Separate Mechanism of Tachychardia ? Site-Rite Ultrasound used for vascular access ? Intracardiac Echocardiography ? 3D Mapping ? Programmed stimulation after drug Infusion (e.g.,Isoproteronol) Auxiliary Device Intracardiac Echo Used: Yes Mapping System 1: Carto Procedure Detail Estimated Blood Loss: < 50 ml Specimen Collected: None Level of Sedation Achieved: See Anesthesia Note Total Flouro Time: 0 LABOR CONCILIATOR Total Flouro Dose: 0 mGy Transseptal Mean LA Pressure: 5 mmHg Staff Name Role Gregoria Zheng Project Construction Manager Annalise Phillips RN Nurse Sapna Bejarano RCES Monitor Rigoberto Dougherty RCES Scrub Kevin Payne CVT Scrub Jaxson La CVT Natural Resources Technician Sal Mckeon Anesthesiologist Medications Ordered and Administered Start Time Stop Time Medication Dose Units Route Ordered By Given By 09:02 0.25% Bupivicaine 5 mL Subcut MD Gregoria Munoz MD 09:02 1% Lidocaine Hydrochloride 5 mL Subcut MD Gregoria Munoz MD 09:09 Heparin 16530 Units IV MD Annalise Munoz RN 10:04 (New Bag) Isoproterenol (Isuprel) 5 mcg per min IV MD Annalise Munoz RN 10:18 Protamine 40 Mg IV MD Annalise Munoz RN The anesthesia service monitored the patient?s conscious sedation duringthe procedure. The medications listed above were verbally ordered by me and read back tome as documented above. Refer to the hemodynamic procedure log report for additional casedetails. electronically signed on 01/16/2024 3:25:54 PM with status of Final Gregoria Zheng MD Project Construction Manager [facility] [address] [place] [address] (p) [phone](f) Images 01/16/2024 3:24:39 PM 01/16/2024 3:24:57 PM 01/16/2024 3:25:12 PM Gregoria Zheng MD CV IMAGING * (ABNORMAL) CBC with Platelet no Diff (01/16/2024 7:24 AM CDT) WHITE BLOOD COUNT 5.6 4.5 - 11.0 thou/cu mm 01/16/2024 7:38 AM CDT [facility] RED BLOOD COUNT 4.57 4.00 - 5.20 mil/cu mm 01/16/2024 7:38 AM CDT [facility] HEMOGLOBIN 13.0 12.0 - 16.0 g/dL 01/16/2024 7:38 AM CDT [facility] HEMATOCRIT 39.8 33.0 - 51.0 % 01/16/2024 7:38 AM CDT [facility] MCV 87 80 - 100 fL 01/16/2024 7:38 AM CDT [facility] MCH 28.4 26.0 - 34.0 pg 01/16/2024 7:38 AM CDT [facility] MCHC 32.7 32.0 - 36.0 g/dL 01/16/2024 7:38 AM CDT [facility] RDW 13.9 11.5 - 15.5 % 01/16/2024 7:38 AM CDT [facility] PLATELET COUNT 182 140 - 440 thou/cu mm 01/16/2024 7:38 AM CDT [facility] MPV 11.4(H) 6.5 - 11.0 fL 01/16/2024 7:38 AM CDT [facility] TR[facility] LABORATORY NRBC 0.0 % 01/16/2024 7:38 AM T [facility] TRAL LABOR[facility] ABS NRBC 0.0 thou /cu mm 01/16/2024 7:38 AM T [facility] Blood BLOOD SPECIMEN / Unknown Non-Lab Venipuncture / Unknown 01/16/2024 7:24 AM CDT 01/16/2024 7:30 AM CDT Gregoria Zheng MD HEMATOLOGY [facility] [address] [place] [address], * (ABNORMAL) Basic Metabolic Panel (01/16/2024 7:24 AM CDT) SODIUM 139 136 - 145 mmol/L 01/16/2024 8:03 AM [facility] POTASSIUM 4.1 3.5 - 5.1 mmol/L 01/16/2024 8:03 AM [facility] CHLORIDE 105 98 - 107 mmol/L 01/16/2024 8:03 AM [facility] CO2,TOTAL 24 22 - 29 mmol/L 01/16/2024 8:03 AM [facility] ANION GAP 10 5 - 18 01/16/2024 8:03 AM [facility] GLUCOSE 89 70 - 99 mg/dL 01/16/2024 8:03 AM T [facility] CALCIUM 9.3 8.8 - 10.2 mg/dL 01/16/2024 8:03 AM [facility] BUN 23 8 - 23 mg/dL 01/16/2024 8:03 AM T [facility] CREATININE 1.03(H) 0.50 - 0.90 mg/dL 01/16/2024 8:03 AM [facility] BUN/CREAT RATIO 22(H) 10 - 20 8:03 AM CDT [facility] eGFR 58(L) >90 mL/min/1.7 3m2 01/16/2024 8:03 AM CDT [facility] Comment:As of 2021, eG FR is calculated by the CKD-EPI creatinine equation without race adjustment. ??eGFR can be influenced by muscle mass, exercise, and diet. ??The reported eGFR is an estimation only and is only applicable if the renal function is stable. Blood BLOOD SPECIMEN / Unknown Non-Lab Venipuncture / Unknown 01/16/2024 7:24 AM CDT 01/16/2024 7:30 AM CDT Gregoria Zheng MD CHEMISTRY Performing Organization Address City/[facility]/ZIP Co de Phone Number [facility] [address] [place] [id number], * SCAN-CARDIAC STRIP (01/16/2024 12:00 AM CDT) Narrative 01/16/2024 12:00 AM CDT Ordered by an unspecified provider. Other Clinical Staff OTHER * CREATININE,ISTAT (12/20/2023 1:39 PM CDT) POCT,CREATININE , ISTAT 1.0 0.6 - 1.3 mg/dL [facility]Ur[facility]) Blood BLOOD SPECIMEN / Unknown 12/20/2023 1:39 PM CDT 12/20/2023 1:40 PM CDT Narrative [facility] - 12/20/2023 1:45 PM CDT FASTING:UNKNOWN FASTING: UNKNOWN Gregoria Zheng MD CHEMISTRY Performing Organization Address City/[facility]/ZIP Co de Phone Number [facility] [address] [place] [address], [place] [facility] (Urgent Care) [address] [place] [address] * CT CARDIAC MORPHOLOGY W DUAL READ (12/20/2023 10:27 AM CDT) Anatomical Region Laterality Modality HEART Computed Tomogra phy Impressions 12/20/2023 6:56 PM CDT 1. Please see dedicated cardiac imaging report. 2. Incidental granulomatous changes left upper lobe calcified nodule mediastinal lymph node calcification. 3. No significant extra cardiac imaging abnormality. Please note that all CT scans at this facility use dose modulation, iterative reconstruction, and/or weight-based dosing when appropriate to reduce radiation dose to as low as reasonably achievable. Dictated by Jeremy Waller MD @ 12/20/2023 1:29:29 PM (Electronic Signature) Narrative 12/20/2023 6:56 PM CDT STUDY: CT CARDIAC MORPHOLOGY Study date: 12/20/2023 Indication: 73 year-old male with atrial fibrillation who has been referred for evaluation of left atrial and pulmonary vein anatomy. STUDY PARAMETERS: Scanner: Siemens Definition Drive Contrast: 70 ml of Omnipaque 350 Scan protocol: Flash Radiation dose length product: 99 DLP Image quality: Excellent FINAL IMPRESSIONS: Left atrial size is normal. No evidence of thrombus in the left atrium. Normal pulmonary vein anatomy with 2 right-sided and 2 left-sided veins. Tiny PFO. Please see radiology report for noncardiac findings FINDINGS: Left atrium: Left atrial size is normal Pulmonary veins: Normal anatomy with 2 right-sided and 2 left-sided veins. No evidence of stenosis. ?Venous ostia cross-sectional diameters are: ?Right upper: 15 x 19 mm ?Right lower: 22 x 23 mm ?Left upper: 17 x 17 mm ?Left lower: 11 x 17 mm Pericardium: Normal Esophagus: Positioned directly posterior to the centerline of the left atrial body. Thoracic aorta: Mild atheromatous disease in the visualized descending thoracic aorta. Maximum cross-sectional dimensions in visualized aorta are: Aortic sinus: 32 mm maximum [id number]. Ascending aorta: 26 x 26 mm. Descending thoracic aorta: 22 x 24 mm. Coronary arteries: No coronary calcification noted. This study was not protocolized for detailed coronary evaluation. FOR PATIENT: Results are automatically released to your [employer]) account once available, in compliance with federal regulations. ?? This means that you may see your results before your provider has had a chance to review them. ??Please allow 2-3 business days for your provider to comment on the results. Cisco Vela MD 12/20/2023 For Patients: As a result of the Century Cures Act, medical imaging exams and procedure reports are released immediately into your electronic medical record. ??You may view this report before your referring provider. ?? If you have questions, please contact your health care provider. OVER-READ ??OVER-READ ??OVER-READ OVER-READ: DETAILED RADIOLOGY EXTRACARDIAC OVER-READ OF CARDIAC CT 12/20/2023 TECHNIQUE: ??Please see cardiology report for technical information. ??70 cc Omnipaque-350 intravenous contrast. ?? This exam is being performed in conjunction with the services provided by the [facility] ([facility]). CLINICAL HISTORY: ?? Cardiac over-read. FINDINGS: ?? Pulmonary arteries:No filling defects, bolus timing may somewhat limit evaluation. Mediastinum:No suspicious adenopathy. Incidental lymph node calcification. Lungs and pleural structures: Clear, no effusions. 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
--- OUTSIDE RECORDS SUMMARY | 2024-02-08 12:53 | XMS_ITS | Clinical Summary ---
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 [employer] Allergies Active Allergy Reactions Criticality Noted Date [...] times weekly. 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 Cervicalgia 09/19/2006 Overview (01/18/2021): cervical herniation Social History Tobacco Use Types [...] 2002 Dexa 2017 COVID-19 Vaccine ( season) 2023 01/30/2021, 06/20/2020, 05/23/2020 Influenza (#1) 2023 02/09/2023, 1204/2021, 01/30/2021, Additional history exists DTaP/Tdap/Td (2 - Tdap) 01/26/2024 01/25/2014 RSV (1 - 1-dose 75+ series) 2027 Pneumococcal 65+ Yrs Completed 02/08/2018, 03/24/20 17 [...] on patient's age to complete this topic RSV Aged Out No longer eligi ble based on patient's age to complete this topic MCV4 Aged Out No longer eligi ble based on patient's age to complete this topic Care Teams Felt Cutting Machine Operator Relationship Specialty Start Date End Date Akbar Dorado III, MD [address] [address] PCP - General 07/06/10
--- NOTE | 2024-02-08 13:00 | CRLHL7_ITS ---
For Patients: As a result of the Century Cures Act, medical imaging exams and procedure reports are released immediately into your electronic medical record. You may view this report before your referring provider. If you have questions, please contact your health care provider. DXA BONE MINERAL DENSITY STUDY Reason for exam: History of breast cancer. Aromatase inhibitors. Current height (in): 66. Weight (lb): 174. Menopause age: 52. Ethnicity: White. 1. Have you had a previous hip or vertebral fracture? No. 2. Have you had any fractures during your adult life which did not result from significant trauma (e.g., auto accident)? No. 3. Did either of your parents have a hip fracture? No. 4. Do you smoke? No. 5. Have you ever taken Glucocorticoids? No. 6. Do you have rheumatoid arthritis? No. 7. Do you have secondary osteoporosis? No. 8. Do you drink 3 or more alcoholic drinks per day? No. 9. Are you being treated for osteoporosis? No. 10. Have you ever taken any of the following medications: Actonel, Evista, Fosamax, Miacalcin, Reclast, Boniva, Forteo, HRT (i.e., estrogen/hormone therapy), Protelos, Prolia, Vitamin D, Calcium, other ??? please specify. ANSWER: Yes, vitamin D and calcium. 11. Do you have any of the following medical conditions: Anorexia or bulimia, asthma or emphysema, end stage renal disease, hyperparathyroidism, any seizure disorders, cancer, inflammatory bowel diseases, hysterectomy, other ??? please specify. ANSWER: Yes, cancer and hysterectomy. 12. What was your maximum height (inches)? 67. 13. Do you perform weight bearing exercise regularly? Yes. 14. Do you regularly consume dairy products? Yes. 15. Do you drink caffeinated beverages? Yes. 16. At what age did your period start? 17. 17. Are you premenopausal? No. 18. How many full-term pregnancies have you had? 2. 19. Have you ever missed your period for more than 6 months in a row (not including or menopause)? No. TECHNIQUE: Bone mineral density study was performed using the [facility]. FINDINGS: The results of the study expressed as bone mineral density (BMD) are as follows: Lumbar spine L1 to L4: BMD: 1.234 g/cm2. T-score: 1.7. Z-score: 3.9 Neck Left: BMD: 0.731 g/cm2. T-score: -1.1. Z-score: 0.8 Right: BMD: 0.696 g/cm2. T-score: -1.4. Z-score: 0.5 Total Left: BMD: 0.914 g/cm2. T-score: -0.2. Z-score: 1.4 Right: BMD: 0.891g/cm2. T-score: -0.4. Z-score: 1.2 IMPRESSION: Osteopenia. *Comparison exams done prior to 09/2019 were performed on different unit, [employer]. COMPARISON: Compared with scan of 11/04/2021, the bone mineral density has increased by 0.7 percent at the spine and increased by 0.4 percent at the hip. Compared with scan of 04/01/2016, the bone mineral density has decreased by 3.8 percent at the spine and decreased by 3.8 percent at the hip. FRAX 10-year Fracture Risk Major Osteoporotic Fracture: 9.8% Hip Fracture: 1.4% Reported Risk Factors: [place] () Neck BMD=0.696, BMI=28.[address]:jamari Transcribed: 5:32 p.m. [email or web address] jamari/Dictated by: Dionisio Zhao MD @ 02/12/2024 10:30:00 PM (Electronically Signed)
== END 2024-02-08 12:51 | disposition home or self-care (01) ==
LOC: RAD 12:51
PROVIDERS: PCP Family Medicine; Visit Provider Physician Assistant
DX: Z85.3 Personal history of malignant neoplasm of breast (principal); M85.89 Other specified disorders of bone density and structure, multiple sites; Z79.811 Long term (current) use of aromatase inhibitors
CPT/HCPCS: 77080

== ENCOUNTER 2024-08-16 11:26 | Outpatient (CLI) | payer MEDICARE, BC, SELFPAY ==
--- NOTE | 2024-08-16 11:30 | CRLHL7_ITS ---
For Patients: As a result of the Century Cures Act, medical imaging exams and procedure reports are released immediately into your electronic medical record. You may view this report before your referring provider. If you have questions, please contact your health care provider. INDICATION: BILATERAL SCREENING MAMMOGRAM, ASYMPTOMATIC 74 Y/O FEMALE COMPARISON: 08/15/2023, 08/12/2022, 07/07/2021 TECHNIQUE: Digital mammogram in CC and MLO projections including computer-aided detection (CAD) and tomosynthesis. BREAST COMPOSITION: There are scattered areas of fibroglandular density. FINDINGS: No suspicious findings. ASSESSMENT: BI-RADS 2 Benign RECOMMENDATION: Annual screening mammogram. A lay language report of this examination will be provided to the patient. Dictated by: Yossi Moss MD @ 08/16/2024 12:24:23 (Electronically Signed)
== END 2024-08-16 11:27 | disposition home or self-care (01) ==
LOC: MAMMO 11:27
PROVIDERS: PCP Family Medicine; Visit Provider Family Medicine
DX: Z12.31 Encounter for screening mammogram for malignant neoplasm of breast (principal)
CPT/HCPCS: 77063; 77067

== ENCOUNTER 2024-09-19 13:00 | Outpatient (RCR) | payer MEDICARE, BC, SELFPAY ==
--- NOTE | 2024-05-24 15:35 | ONC.NURNOTE ---
Breast Cancer Index testing requested via online portal. Patient has follow up in September to discuss results.
== END 2024-11-19 23:59 | disposition home or self-care (01) ==
LOC: CCIC 13:00
PROVIDERS: PCP Family Medicine; Visit Provider Internal Medicine Hematology & Oncology
DX: C50.911 Malignant neoplasm of unspecified site of right female breast (principal); Z17.0 Estrogen receptor positive status [ER+]; Z79.811 Long term (current) use of aromatase inhibitors; N90.4 Leukoplakia of vulva; N95.2 Postmenopausal atrophic vaginitis
CPT/HCPCS: 99213; 99214; G0463

== ENCOUNTER 2024-12-31 09:28 | Outpatient (CLI) | payer MEDICARE, BC, SELFPAY | END 2024-12-31 09:29 | disposition home or self-care (01) | PROVIDERS: PCP Family Medicine; Visit Provider Family Medicine | DX: I95.9 Hypotension, unspecified (principal); E78.5 Hyperlipidemia, unspecified; E03.9 Hypothyroidism, unspecified | CPT/HCPCS: 80053; 80061; 84443 ==